=== PATIENT | female | born 1955 | race Caucasian/White ===

== ENCOUNTER 2019-12-08 15:54 | Inpatient (IN) | payer MEDICARE, SELFPAY ==
[2019-12-08 15:55] VITALS: BP 166/8; PULSE 119; RESP 24; TEMP 37.2; O2SAT 97; BMI 34.3
--- NOTE | 2019-12-08 16:35 | EKG12_ITS ---
Test Reason : N/V Blood Pressure : / mmHG Vent. Rate : 115 BPM Atrial Rate : 115 BPM P-R Int : 146 ms QRS Dur : 084 ms QT Int : 336 ms P-R-T Axes : 067 -69 050 degrees QTc Int : 464 ms Sinus tachycardia Left anterior fascicular block Inferior infarct , age undetermined Anterior infarct , age undetermined Abnormal ECG Confirmed by LEISA CHI ([id number]), editor sound AUBREY KING ([id number]) on 12/15/2019 1:47:30 PM Referred By: SHAYLEE Confirmed By:LEISA CHI
--- NOTE | 2019-12-08 16:39 | ED.DCSUM_ITS ---
History of Present Illness Chief Complaint: Nausea/Vomiting Informant: Patient - Abdominal Pain/Flank Pain Onset: Today Context: Gradual Onset Timing: Intermittent Quality: Aching Location: Diffuse - Nausea/Vomiting/Emesis GI Symptom: Nausea, Vomiting Onset: Yesterday Quality: Nonbilious. Negative for: Coffee ground, Hematemesis - Diarrhea/Melena/Hematochezia GI Symptom: Diarrhea, Hematochezia Onset: Today Stool Quality: Watery, JENNIFER per rectum. Negative for: Black, Maroon Narrative: Patient is a 64-year-old female with history of type 1 diabetes mellitus, generally well controlled, presenting with nausea vomiting and bright red blood per rectum. Patient states that yesterday she tried a probiotic for the first time but also ate [employer]. In the evening she developed nausea vomiting diarrhea. When it started she developed cold sweats. Around 330 her diarrhea progressed to bright red blood. She states when she goes to the toilet is just liquid that comes out and there is about half dollar size amount of blood seen on the bottom of the toilet. She denies any clots. She knows she did not take her nighttime insulin because she not been eating or drinking secondary to her GI symptoms. When she checked her blood sugar today it was 488. She did take 10 units of insulin and right before she came here her blood sugar was 385. She states her at last A1c was good. She not recall the exact number. She notes that she has mild diffuse abdominal discomfort. She states it is more like a nausea than pain. She states she is never had anything like this before. She have a colonoscopy when she was 21 when they were trying to diagnose her diabetes but has not had one since. Patient states she does take aspirin intermittently for headaches. She is not on any anticoagulation. She denies any other complaints at this time. Past Medical History - Allergies and Home Meds Allergies/Adverse Reactions: Allergies No Known Allergies Allergy (Verified 12/08/19 16:38) Past Medical History: - - Diabetes mellitus Surgical History: noncontributory, - - Sigmoidoscopy - Family History Maternal Family History: Reports: No pertinent history Paternal Family History: Reports: No pertinent history Review of Systems General: Reports: Chills, Malaise. Denies: Fever, Sweats Eyes: Denies: Visual changes - bilaterally, Diplopia ENT: Denies: Rhinorrhea, Sore throat Cardiovascular: Denies: Chest pain, Palpitations Respiratory: Denies: Dyspnea, Cough, Dyspnea on exertion Gastrointestinal: Reports: Nausea, Vomiting, Diarrhea, Hematochezia. Denies: Abdominal pain, Melena Genitourinary: Denies: Dysuria, Hematuria, Frequency Musculoskeletal: Denies: Back pain, Extremity Pain Skin: Denies: Rash, Wounds Neurological: Denies: Headache, Weakness, Numbness Physical Exam Vital Signs/Narrative: Vital Signs Temp Pulse Resp BP Pulse Ox 12/08/19 15:55 98.9 F 119 H 24 H 166/8 H 97 Inital Vital Signs reviewed: Yes General: Well nourished, Well developed, No Acute Distress Head: Normocephalic, Atraumatic Eyes: Perrl, EOMI ENT: No rhinorrhea, Dry mucous membranes Neck: Supple, Nontender Cardiovascular: Regular rhythm, No murmurs, Tachycardia Respiratory: No distress, CTA bilaterally, Chest nontender Abdomen: Soft, Nontender, Nondistended, Normal bowel sounds Rectal: Guaiac positive, Nontender, - - Bright red blood noted on rectal exam Back: Nontender, Normal Inspection Extremities: Nontender, No edema Skin: Normal color, No rash Neurological: Alert, Oriented x3, Cranial nerves II-XII grossly intact, Normal Strength, Normal Sensation Psychological: Normal affect, Normal Mood Diagnostic/Tx/Re-eval Chest X-Ray - ED: 1 View, Read by ED Physician, Read by Radiologist, No Acute Disease Laboratory Data 12/08/19 12/08/19 12/08/19 17:15 17:15 17:15 WBC 16.1 H RBC 4.88 Hgb 14.5 Hct 43.8 MCV 89.8 MCH 29.7 MCHC 33.1 RDW Std Deviation 45.1 H RDW Coeff of Nisha 13.8 Plt Count 290 MPV 9.2 Immature Gran % (Auto) 0.400 Neut % (Auto) 87.9 H Lymph % (Auto) 5.5 L [place]field % (Auto) 5.2 Eos % (Auto) 0.8 Baso % (Auto) 0.2 Absolute Neuts (auto) 14.1 H Absolute Lymphs (auto) 0.89 Nucleated RBC % 0 PT INR Sodium 137 Potassium 4.0 Chloride 101 Carbon Dioxide 27.0 Anion Gap 9 BUN 27 H Creatinine 1.21 H Estim Creat Clear Calc 41.09 Est GFR (MDRD) Af Amer 58 L Est GFR (MDRD) Non-Af 48 L BUN/Creatinine Ratio 22.3 H Glucose 328 H Lactic Acid Calcium 9.0 Total Bilirubin 0.80 AST 11 L ALT 23 Alkaline Phosphatase 158 H Troponin I < 0.015 Total Protein 7.4 Albumin 3.5 Globulin 3.9 Albumin/Globulin Ratio 0.9 Lipase 56 L Urine Color Urine Clarity Urine pH Ur Specific [place] Urine Protein Urine Glucose (UA) Urine Ketones Urine Occult Blood Urine Nitrite Urine Bilirubin Urine Urobilinogen Ur Leukocyte Esterase Urine RBC Urine WBC Ur Squamous Epith Cells Urine Bacteria Urine Mucus Acetone Level NEGATIVE Blood Type Antibody Screen Crossmatch 12/08/19 12/08/19 12/08/19 17:15 17:15 17:15 WBC RBC Hgb Hct MCV MCH MCHC RDW Std Deviation RDW Coeff of Nisha Plt Count MPV Immature Gran % (Auto) Neut % (Auto) Lymph % (Auto) [place] % (Auto) Eos % (Auto) Baso % (Auto) Absolute Neuts (auto) Absolute Lymphs (auto) Nucleated RBC % PT 12.7 INR 1.0 Sodium Potassium Chloride Carbon Dioxide Anion Gap BUN Creatinine Estim Creat Clear Calc Est GFR (MDRD) Af Amer Est GFR (MDRD) Non-Af BUN/Creatinine Ratio Glucose Lactic Acid 2.2 H* Calcium Total Bilirubin AST ALT Alkaline Phosphatase Troponin I Total Protein Albumin Globulin Albumin/Globulin Ratio Lipase Urine Color Yellow Urine Clarity Clear Urine pH 5.0 Ur Specific [place] 1.020 Urine Protein Negative Urine Glucose (UA) 1000 H Urine Ketones 150 H Urine Occult Blood 10 H Urine Nitrite Negative Urine Bilirubin Negative Urine Urobilinogen Normal Ur Leukocyte Esterase 25 H Urine RBC 0 SEEN Urine WBC 0-5 SEEN Ur Squamous Epith Cells 0-5 SEEN Urine Bacteria 0 SEEN Urine Mucus 0 SEEN Acetone Level Blood Type Antibody Screen Crossmatch 12/08/19 17:15 WBC RBC Hgb Hct MCV MCH MCHC RDW Std Deviation RDW Coeff of Nisha Plt Count MPV Immature Gran % (Auto) Neut % (Auto) Lymph % (Auto) [place] % (Auto) Eos % (Auto) Baso % (Auto) Absolute Neuts (auto) Absolute Lymphs (auto) Nucleated RBC % PT INR Sodium Potassium Chloride Carbon Dioxide Anion Gap BUN Creatinine Estim Creat Clear Calc Est GFR (MDRD) Af Amer Est GFR (MDRD) Non-Af BUN/Creatinine Ratio Glucose Lactic Acid Calcium Total Bilirubin AST ALT Alkaline Phosphatase Troponin I Total Protein Albumin Globulin Albumin/Globulin Ratio Lipase Urine Color Urine Clarity Urine pH Ur Specific [place] Urine Protein Urine Glucose (UA) Urine Ketones Urine Occult Blood Urine Nitrite Urine Bilirubin Urine Urobilinogen Ur Leukocyte Esterase Urine RBC Urine WBC Ur Squamous Epith Cells Urine Bacteria Urine Mucus Acetone Level Blood Type A POSITIVE Antibody Screen NEGATIVE Crossmatch See Detail - Rhythm Strip Rhythm Strip: Sinus Tach Rate: 115 Ectopy: None - EKG Initial EKG Interpretation: Sinus Tachycardia, - - Sinus tachycardia at a rate of 115 Left axis deviation KS interval 146 QRS 84 QTc 464 Left anterior fascicular block Normal ST segments - Medical Decision Making Patient is evaluated for nausea, vomiting and rectal bleeding. She does have bright red blood on her rectal exam. When she arrived patient is tachycardic. She is given IV fluids in the emergency room as I do suspect there is a component of dehydration. She is also given IV Zofran. Patient is improvement of her symptoms with these interventions. She does remain mildly tachycardic in the emergency room however. Her lactate is 2.2. She does have a leukocytosis however I suspect this is associated with her bleeding versus vomiting and I do not have any source of infection at this time. Her hemoglobin is 14.5 and stable. Her creatinine is mildly elevated at 1.21 however I do not have a baseline to compare to. Given patient's presenting tachycardia, lactic acidosis, GI bleed and comorbidities of type 1 diabetes mellitus I do think she would benefit from admission. Patient does not have an anion gap or ketones in her serum. She does not meet criteria for DKA. Patient is agreeable with this plan. Case is discussed with admitting physician. Patient remains hemodynamically stable for the general medical floor at time of disposition. ED Disposition - Plan for ED Patient: Disposition: Acute Care [facility] Diagnosis: GI bleed, Type 1 diabetes mellitus, Elevated serum creatinine
--- NOTE | 2019-12-08 16:41 | NURSING ---
NO OLD EKGS
[2019-12-08] MEDS: 0.9% Normal Saline 1,000 ML 1000 ML IV (17:25)
[2019-12-08] MEDS: Ondansetron 4 MG/2 ML Vial IV (17:25)
[2019-12-08 17:32] LABS: Bacteria 0 SEEN /hpf (None Seen); Mucous, Urine 0 SEEN /hpf (<or=2+); Red Blood Cells-Urine 0 SEEN /hpf (0-5)
[2019-12-08 17:42] LABS: Absolute Lymphocyte Count 0.89 X10^3/uL (0.83-4.51); Absolute Neutrophil Count 14.1 X10^3/uL (2.0-7.7); Basophil# 0.03 X10^3/uL; Basophil% 0.2 % (0-1); Eosinophil# 0.13 X10^3/uL; Eosinophils% 0.8 % (0-5); Hematocrit 43.8 % (37-47); Hemoglobin 14.5 g/dL (12.0-15.0); Lymphocyte # 0.89 X10^3/ul (4.0); Lymphocyte % 5.5 % (19-41); Mean Corp Hgb Conc 33.1 g/dL (32-36); Mean Corpuscular Hgb 29.7 pg (27.0-32.0); Mean Corpuscular Volume 89.8 fL (81-99); Mean Platelet Vol. 9.2 fl (6.2-12.0); Monocyte# 0.83 X10^3/uL; Monocyte% 5.2 % (0-10); NRBC Flagged by Analyzer 0 % (0-5); Neutrophil # 14.14 X10^3/uL (2.7-7.7); Neutrophil % 87.9 % (47-70); Platelet Count 290 K/mm3 (150-450); RBC Distribution Width CV 13.8 % (11.6-14.6); RBC Distribution Width SD 45.1 fl (35.1-43.9); Red Blood Count 4.88 M/mm3 (4.2-5.4); White Blood Count 16.1 K/mm3 (4.4-11.0)
[2019-12-08 17:55] LABS: Color, Urine Yellow (Yellow); Glucose, Dipstick 1000 mg/dl (Normal); Leukocyte Esterase-Dipstick 25 /ul (Negative); Nitrite-Dipstick Negative (Negative); Occult Blood-Urine 10 /ul (Negative); Protein-Dipstick Negative (Negative); Urine Bilirubin Dipstick Negative (Negative); Urine Clarity Clear (Clear); Urine Urobilinogen Normal (Normal)
[2019-12-08 18:00] LABS: ALB/GLOB Ratio 0.9 RATIO (0.9-2.4); AST(SGOT) 11 U/L (15-37); Alanine Aminotransfer ALT/SGPT 23 U/L (13-56); Albumin, Serum 3.5 g/dL (3.2-5.0); Alkaline Phosphatase 158 U/L (45-117); Anion Gap 9 (5-15); BUN 27 mg/dL (7-18); BUN/Creat Ratio 22.3 RATIO (10-20); Chloride 101 mmol/L (98-107); Creatinine, Serum 1.21 mg/dL (0.55-1.02); EST Glomerular Filtration Rate 48 mL/min (>60); Est Glom Filt Rate - Afr Amer 58 mL/min (>60); Estimated Creatinine Clearance 41.09 ml/min; Globulin 3.9 g/dL (2.2-4.2); Glucose 328 mg/dL (74-106); Lipase 56 U/L (73-393); Protein, Total 7.4 g/dL (6.4-8.2); Sodium Level 137 mmol/L (136-145)
[2019-12-08 18:04] LABS: Ketone-Dipstick 150 mg/dl (Negative)
[2019-12-08 18:05] LABS: Lactic Acid 2.2 mmol/L (0.4-1.9)
[2019-12-08 18:15] LABS: Squamous Epithelial Cells - UA 0-5 SEEN /hpf (5-10); White Blood Cells 0-5 SEEN /hpf (0-5)
--- NOTE | 2019-12-08 18:24 | PCM.HP.STD ---
Problem List (1) GI bleed Status: Acute (2) Insomnia Status: Chronic (3) Depression Status: Chronic (4) Type 1 diabetes mellitus Status: Chronic (5) Hypertension Status: Chronic History of Present Illness Date of Admission: 12/08/19 Chief Complaint: Bleeding per rectum. The patient is a 64 year old F with past medical history as mentioned above presented to the emergency room because of bleeding per rectum. Patient stated that around 3 AM this morning, she had bowel movement which was bloody, bright red blood, large amount and she continued to have intermittent bowel movements with bright red blood, almost 20-25 times since early this morning, associated with mild nausea without vomiting. She complained also of abdominal pain, described as crampy abdominal pain intermittent without aggravating or relieving factors. She denied dizziness or lightheadedness. She denied chest pain or shortness of breath. In the emergency department, her blood pressure was slight elevated, she was tachycardic, other vital signs were stable. Routine blood work was remarkable for leukocytosis, BUN of 27 and creatinine of 1.21, blood glucose of 328 without evidence of DKA, lactic acid was 2.2. LFT and lipase was unremarkable. EKG revealed sinus tachycardia, no acute hemic changes. Troponin is negative. Urinalysis showed no evidence of acute infection. She is being admitted for GI bleed, renal insufficiency and lactic acidosis. Past Medical History Past Medical History (Chronic Problems): Chronic Problems Insomnia (Chronic) Depression (Chronic) Type 1 diabetes mellitus (Chronic) Hypertension (Chronic) Allergies No Known Allergies Allergy (Verified 12/08/19 16:38) Surgical History: - - section. 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 Lives: Spouse/ Significant Other Smoking Status: Never smoker Alcohol: Rare Drugs: None - *Family History Maternal History Items: No pertinent history Paternal History Items: No pertinent history Review of Systems Constitutional: Denies: Anorexia, Chills, Fever, Weakness Eyes: Denies: Blurred vision, Double vision, Drainage, Redness HEENT: Denies: Difficulty Hearing, Ear Pain, Eye Pain, Nasal Congestion, Sore Throat Cardiovascular: Denies: Chest Pain, Chest Pressure, Heaviness, Light Headedness, Palpitations, Syncope Respiratory: Denies: Cough, Hemoptysis, Pleuritic Pain, Shortness of Breath, Sputum production, Wheezing Gastrointestinal: Reports: Abdominal Pain, Hematochezia, Nausea. Denies: Constipation, Diarrhea Genitourinary: Denies: Dysuria, Frequency, Hematuria Musculoskeletal: Denies: Arm Pain, Back Pain, Foot Pain Skin: Denies: Dryness, Rash Neurological: Denies: Balance problems, Double vision, Change in Speech, Slurred speech, Confusion, Headaches, Incoordination Psychiatric: Reports: Depression. Denies: Anxiety Endocrine: Denies: Change in Body Habitus, Polydipsia, Polyuria VTE Information - Inpt Only VTE Present on Admission: No VTE Mechan Device Prophylaxis: SCD's VTE Pharm Prophylaxis ordered?: No Patient Problems: Active and Suspected Problems GI bleed (Acute) - Physical Exam Vitals/I&O's: Vital Signs Temp Pulse Resp BP Pulse Ox 98.9 F 119 H 24 H 166/8 H 97 12/08/19 15:55 12/08/19 15:55 12/08/19 15:55 12/08/19 15:55 12/08/19 15:55 Oxygen Delivery Method Room Air Weight: 199 lb 15.348 oz Body Mass Index (BMI) 34.3 General: Alert, Oriented x3, Cooperative, No apparent distress HEENT: Atraumatic, PERRLA, EOMI, Normocephalic Oral: Moist Mucosa, No Gingival or Mucosal Lesions/ Ulcerations Neck: Supple, No JVD, Negative Carotid Bruits, Trachea Midline, Thyroid Normal Size and Texture Lungs: Clear to auscultation, Normal air movement, No rhonchi, No wheeze, No rales Cardiovascular: Regular rate, Regular Rhythm, Normal S1, Normal S2, No murmurs, PMI Normal, Tachycardic Abdomen: Bowel Sounds Present, Soft, Non Tender, Non-Distended, No Hepato-splenomegaly Extremities: No clubbing, No cyanosis, No edema Skin: No rashes, No breakdown Lymphatic: No Cervical, Supraclavicular, or Inguinal Adenopathy Neurological: Cranial nerves II-XII grossly intact, Motor Exam 5/5 strength throughout Psych/Mental Status: Normal Affect, Appropriate, Alert and oriented to time, place, person, mood and affect Microbiology Past 72 Hours 12/08/19 17:15 Stool Stool Occult Blood (REANNA) - Final Occult Blood Positive Laboratory Results 12/08/19 17:15: WBC 16.1 H, RBC 4.88, Hgb 14.5, Hct 43.8, MCV 89.8, MCH 29.7, MCHC 33.1, RDW Std Deviation 45.1 H, RDW Coeff of Nisha 13.8, Plt Count 290, MPV 9.2, Immature Gran % (Auto) 0.400, Neut % (Auto) 87.9 H, Lymph % (Auto) 5.5 L, [place] % (Auto) 5.2, Eos % (Auto) 0.8, Baso % (Auto) 0.2, Absolute Neuts (auto) 14.1 H, Absolute Lymphs (auto) 0.89, Nucleated RBC % 0 12/08/19 17:15: Sodium 137, Potassium 4.0, Chloride 101, Carbon Dioxide 27.0, Anion Gap 9, BUN 27 H, Creatinine 1.21 H, Estim Creat Clear Calc 41.09, Est GFR (MDRD) Af Amer 58 L, Est GFR (MDRD) Non-Af 48 L, BUN/Creatinine Ratio 22.3 H, Glucose 328 H, Calcium 9.0, Total Bilirubin 0.80, AST 11 L, ALT 23, Alkaline Phosphatase 158 H, Troponin I < 0.015, Total Protein 7.4, Albumin 3.5, Globulin 3.9, Albumin/Globulin Ratio 0.9, Lipase 56 L 12/08/19 17:15: Acetone Level NEGATIVE 12/08/19 17:15: Lactic Acid 2.2 H* 12/08/19 17:15: Urine Color Yellow, Urine Clarity Clear, Urine pH 5.0, Ur Specific [place] 1.020, Urine Protein Negative, Urine Glucose (UA) 1000 H, Urine Ketones 150 H, Urine Occult Blood 10 H, Urine Nitrite Negative, Urine Bilirubin Negative, Urine Urobilinogen Normal, Ur Leukocyte Esterase 25 H, Urine RBC 0 SEEN, Urine WBC 0-5 SEEN, Ur Squamous Epith Cells 0-5 SEEN, Urine Bacteria 0 SEEN, Urine Mucus 0 SEEN Assessment/Plan All Active Problems GI bleed (Acute) This is a 64 years old female patient presented to the emergency room because of bleeding per rectum, found to have slightly with BUN and creatinine as well as lactic acid and she is being admitted for evaluation and treatment. #1 GI bleed: Could be lower GI bleed. No history or clinical findings suggestive of upper GI bleed. Patient's blood pressure is slightly repeated, she is tachycardic. Hemoglobin and hematocrit are stable. Plan: Admit to PCU, cardiac monitoring, IV fluids, type, crossmatch and hold units of packed RBCs, hemoglobin and hematocrit every 8 hours, transfuse if hemoglobin is less than 8 g/dL, IV Protonix twice daily, repeat CBC and BMP tomorrow morning, general surgery consult. #2 renal sufficiency: Probably acute secondary to blood loss. BUN is 27, creatinine is 1.1, unknown baseline creatinine. Plan: IV fluids, input output chart, repeat BMP tomorrow morning. #3 lactic acidosis: Probably due to acute blood loss and tachycardia. No evidence of infection or symptoms suggestive of infection. Plan: IV fluids, blood transfusion if needed, repeat lactic acid in 3 hours. No indication for to start IV antibiotics. #4 type 1 diabetes mellitus: Keep patient on clear liquids, IV fluids, Accu-Cheks every 6 hours, insulin sliding scale, continue home doses of insulin when home medication list updated. #5 hypertension: Blood pressure slight elevated, continue home medication when home medication list updated, IV hydralazine PRN. #6 depression/insomnia: Continue Cymbalta and trazodone. #7 DVT prophylaxis: SCDs. This note was generated with [employer] dictation software. It may contain incorrect words, spelling, and punctuation that were not noted in checking the note before signing. Inpatient E&M: 23665 Init Hosp L3
[2019-12-08 18:45] VITALS: BP 124/81; PULSE 101; RESP 17; TEMP 36.8; O2SAT 99
[2019-12-08 19:57] VITALS: PULSE 86
[2019-12-08 20:03] VITALS: BP 147/74; PULSE 87; RESP 16; TEMP 36.7; O2SAT 98
[2019-12-08 20:06] VITALS: BP 132/79
[2019-12-08 20:11] VITALS: BMI 34.2
[2019-12-08 20:20] VITALS: BMI 34.2
[2019-12-08 20:49] LABS: Prothrombin Time (Protime)PT. 12.7 SECONDS (11.7-14.9)
[2019-12-08 21:12] LABS: Hematocrit 40.5 % (37-47); Hemoglobin 13.4 g/dL (12.0-15.0)
[2019-12-08 21:30] LABS: Reflex Lactate? Y
[2019-12-08] MEDS: 0.9% Saline Lock 10 ML Syringe IV (21:32)
[2019-12-08] MEDS: Zolpidem Tartrate 5 MG Tablet PO (21:32)
[2019-12-08] MEDS: 0.9% Normal Saline 1,000 ML 100 ML IV (21:33)
[2019-12-08 21:36] VITALS: O2SAT 96
[2019-12-08 22:05] LABS: Bedside Glucose 219 mg/dL (70-110)
[2019-12-08 22:09] LABS: Lactic Acid 1.8 mmol/L (0.4-1.9)
[2019-12-08] MEDS: Acetaminophen 325 MG Tablet 650 MG PO (22:11)
[2019-12-09] VITALS (11 sets, daily range): BP systolic 116–152; BP diastolic 58–92; PULSE 63–123; RESP 12–18; TEMP 36.4–37.5; O2SAT 93–98
[2019-12-09] MEDS: Insulin Lispro 100 UNIT/ML INSULN.PEN SC ×3 (05:07→17:21)
[2019-12-09 05:21] LABS: Bedside Glucose 201 mg/dL (70-110)
[2019-12-09] MEDS: Acetaminophen 325 MG Tablet 650 MG PO (06:38)
[2019-12-09 06:40] LABS: Bedside Glucose 157 mg/dL (70-110)
[2019-12-09 07:04] LABS: Absolute Lymphocyte Count 1.62 X10^3/uL (0.83-4.51); Absolute Neutrophil Count 9.5 X10^3/uL (2.0-7.7); Basophil# 0.04 X10^3/uL; Basophil% 0.3 % (0-1); Eosinophil# 0.14 X10^3/uL; Eosinophils% 1.1 % (0-5); Hematocrit 42.2 % (37-47); Hemoglobin 13.8 g/dL (12.0-15.0); Lymphocyte # 1.62 X10^3/ul (4.0); Lymphocyte % 13.3 % (19-41); Mean Corp Hgb Conc 32.7 g/dL (32-36); Mean Corpuscular Hgb 29.7 pg (27.0-32.0); Mean Corpuscular Volume 90.9 fL (81-99); Mean Platelet Vol. 9.5 fl (6.2-12.0); Monocyte# 0.85 X10^3/uL; NRBC Flagged by Analyzer 0 % (0-5); Platelet Count 248 K/mm3 (150-450); RBC Distribution Width CV 14.5 % (11.6-14.6); RBC Distribution Width SD 47.2 fl (35.1-43.9); Red Blood Count 4.64 M/mm3 (4.2-5.4); White Blood Count 12.2 K/mm3 (4.4-11.0)
[2019-12-09 07:27] LABS: Anion Gap 6 (5-15); BUN 21 mg/dL (7-18); BUN/Creat Ratio 21.4 RATIO (10-20); Calcium,Total 8.4 mg/dL (8.5-10.1); Chloride 104 mmol/L (98-107); Creatinine, Serum 0.98 mg/dL (0.55-1.02); EST Glomerular Filtration Rate 61 mL/min (>60); Est Glom Filt Rate - Afr Amer 73 mL/min (>60); Estimated Creatinine Clearance 50.74 ml/min; Glucose 230 mg/dL (74-106); Potassium 3.7 mmol/L (3.5-5.1); Sodium Level 136 mmol/L (136-145)
--- NOTE | 2019-12-09 07:35 | CT_ITS ---
STUDY: CT ABDOMEN AND PELVIS WITH CONTRAST REASON FOR EXAM: Female, 64 years old. ABD PAIN, GI BLEED, BLOODY STOOL RADIATION DOSAGE (If Supplied By Facility): CTDIvol = ( 15.24 ) mGy, DLP = ( 1102.27 ) mGycm TECHNIQUE: Transaxial images were obtained from the dome of the diaphragm to the symphysis pubis with oral contrast. Oral and amp; IV Gastrografin and amp; 100mL Isovue-300 was administered. Sagittal and coronal images were reconstructed. Individualized dose optimization techniques were used for this CT. COMPARISON: None. FINDINGS: Minimal right basilar atelectasis. The visualized portions of the heart are within normal limits. There is decreased attenuation of the liver consistent with steatosis. Normal gallbladder and extrahepatic biliary system. Normal spleen. Normal pancreas. Normal bilateral adrenal glands. Normal right kidney. Normal left kidney. Normal visualized stomach. Normal small intestine. There is diffuse circumferential thickening of the left hemicolon down to the rectum. Increased markings are seen in the surrounding mesenteric fat. This is incompletely diffuse colitis. This extends into the transverse colon. The appendix is visualized and appears normal. Normal abdominal aorta. Normal inferior vena cava. There is borderline retroperitoneal lymphadenopathy with enlarged nodes no greater than 10mm in the short axis diameter. Normal urinary bladder. Small benign-appearing bilateral inguinal lymph nodes. Normal abdominal wall. Normal osseous structures. CT/Abdomen/Pelvis WITH Contrast IMPRESSION: Findings in comparison with the colitis of the transverse colon and left hemicolon down to the rectum. Electronically Signed: Noah Washburn, at 10:49 EDT , Service support ,
[2019-12-09] MEDS: 0.9% Normal Saline 1,000 ML 100 ML IV ×2 (08:21→22:01)
--- NOTE | 2019-12-09 09:18 | PCM.PROGNOTE ---
Patient Problems: Active and Suspected Problems GI bleed (Acute) Subjective: Chief complaint: Follow-up of after admission for GI bleed. Patient seen and examined. No acute events overnight. She still complaining of bright red bleeding per rectum, complained of abdominal pain described as abdominal cramps, gas pain. Denied nausea or vomiting. Complaining of weakness. Denied dizziness, lightheadedness, chest pain or shortness of breath. Her vital signs are stable. - Physical Exam Vitals/I&O's: Vital Signs Temp Pulse Resp BP Pulse Ox 97.5 F L 90 16 142/86 H 98 12/09/19 05:11 12/09/19 06:47 12/09/19 05:11 12/09/19 05:11 12/09/19 05:11 Oxygen Delivery Method Room Air Weight: 199 lb 4.766 oz Body Mass Index (BMI) 34.2 Intake and Output for Last 24 Hours 12/07/19 12/08/19 12/09/19 23:59 23:59 23:59 Intake Total 1342 / 1342 1060 / 1060 Balance 1342 / 1342 1060 / 1060 General: Alert, Oriented x3, Cooperative, No apparent distress HEENT: Atraumatic, PERRLA, EOMI, Normocephalic Oral: Moist Mucosa, No Gingival or Mucosal Lesions/ Ulcerations Neck: Supple, No JVD, Negative Carotid Bruits, Trachea Midline, Thyroid Normal Size and Texture Lungs: Clear to auscultation, Normal air movement, No rhonchi, No wheeze, No rales Cardiovascular: Regular rate, Regular Rhythm, Normal S1, Normal S2 Abdomen: Bowel Sounds Present, Soft, Non Tender, Non-Distended, No Hepato-splenomegaly Extremities: No clubbing, No cyanosis, No edema Skin: No rashes, No breakdown Lymphatic: No Cervical, Supraclavicular, or Inguinal Adenopathy Neurological: Cranial nerves II-XII grossly intact, Motor Exam 5/5 strength throughout Psych/Mental Status: Normal Affect, Appropriate, Alert and oriented to time, place, person, mood and affect Microbiology Past 72 Hours 12/08/19 17:15 Stool Stool Occult Blood (REANNA) - Final Occult Blood Positive Laboratory Results 12/08/19 17:15: WBC 16.1 H, RBC 4.88, Hgb 14.5, Hct 43.8, MCV 89.8, MCH 29.7, MCHC 33.1, RDW Std Deviation 45.1 H, RDW Coeff of Nisha 13.8, Plt Count 290, MPV 9.2, Immature Gran % (Auto) 0.400, Neut % (Auto) 87.9 H, Lymph % (Auto) 5.5 L, [place] % (Auto) 5.2, Eos % (Auto) 0.8, Baso % (Auto) 0.2, Absolute Neuts (auto) 14.1 H, Absolute Lymphs (auto) 0.89, Nucleated RBC % 0 12/08/19 17:15: Sodium 137, Potassium 4.0, Chloride 101, Carbon Dioxide 27.0, Anion Gap 9, BUN 27 H, Creatinine 1.21 H, Estim Creat Clear Calc 41.09, Est GFR (MDRD) Af Amer 58 L, Est GFR (MDRD) Non-Af 48 L, BUN/Creatinine Ratio 22.3 H, Glucose 328 H, Calcium 9.0, Total Bilirubin 0.80, AST 11 L, ALT 23, Alkaline Phosphatase 158 H, Troponin I < 0.015, Total Protein 7.4, Albumin 3.5, Globulin 3.9, Albumin/Globulin Ratio 0.9, Lipase 56 L 12/08/19 17:15: Acetone Level NEGATIVE 12/08/19 17:15: Lactic Acid 2.2 H* 12/08/19 17:15: Urine Color Yellow, Urine Clarity Clear, Urine pH 5.0, Ur Specific [place] 1.020, Urine Protein Negative, Urine Glucose (UA) 1000 H, Urine Ketones 150 H, Urine Occult Blood 10 H, Urine Nitrite Negative, Urine Bilirubin Negative, Urine Urobilinogen Normal, Ur Leukocyte Esterase 25 H, Urine RBC 0 SEEN, Urine WBC 0-5 SEEN, Ur Squamous Epith Cells 0-5 SEEN, Urine Bacteria 0 SEEN, Urine Mucus 0 SEEN 12/08/19 17:15: PT 12.7, INR 1.0 12/08/19 17:15: Blood Type A POSITIVE, Antibody Screen NEGATIVE, Crossmatch See Detail 12/08/19 20:09: POC Glucose 219 H 12/08/19 20:38: Hgb 13.4, Hct 40.5 12/08/19 20:38: Lactic Acid 1.8 12/09/19 00:52: POC Glucose 157 H 12/09/19 05:03: POC Glucose 201 H 12/09/19 06:03: WBC 12.2 H, RBC 4.64, Hgb 13.8, Hct 42.2, MCV 90.9, MCH 29.7, MCHC 32.7, RDW Std Deviation 47.2 H, RDW Coeff of Nisha 14.5, Plt Count 248, MPV 9.5, Immature Gran % (Auto) 0.300, Neut % (Auto) 78.0 H, Lymph % (Auto) 13.3 L, [place] % (Auto) 7.0, Eos % (Auto) 1.1, Baso % (Auto) 0.3, Absolute Neuts (auto) 9.5 H, Absolute Lymphs (auto) 1.62, Nucleated RBC % 0 12/09/19 06:03: Sodium 136, Potassium 3.7, Chloride 104, Carbon Dioxide 26.0, Anion Gap 6, BUN 21 H, Creatinine 0.98, Estim Creat Clear Calc 50.74, Est GFR (MDRD) Af Amer 73, Est GFR (MDRD) Non-Af 61, BUN/Creatinine Ratio 21.4 H, Glucose 230 H, Calcium 8.4 L Current Medications Acetaminophen (Tylenol) 650 mg PO Q6H PRN PRN PRN Reason: Pain Score 1-10/Temp > 100.7 F Last Admin: 12/09/19 06:38 Dose: 650 mg Documented by: Dextrose (D50w Syringe) 0 gm IV X1 PRN; Protocol PRN Reason: Hypoglycemia Glucagon () 1 mg IM .X1 PRN PRN Reason: Hypoglycemia Hydralazine HCl (Apresoline Iv) 10 mg IV Q8H PRN PRN PRN Reason: for SBP>160 Sodium Chloride () 1,000 mls @ 100 mls/hr IV .Q10H MAXI Last Admin: 12/09/19 08:21 Dose: 100 mls/hr Documented by: Pantoprazole Sodium 40 mg/ (Sodium Chloride) 110 mls @ 330 mls/hr IV Q12 MAXI Last Admin: 12/09/19 08:21 Dose: 330 mls/hr Documented by: Insulin Human Lispro (Humalog Kwikpen (Bkc)) 0 unit SC Q6 MAXI; Protocol Last Admin: 12/09/19 05:07 Dose: 2 u Documented by: Nutritional Formula (Lactose Free) (Ensure Clear) 120 ml PO 4X/DAY MAXI Last Admin: 12/09/19 08:22 Dose: Not Given Documented by: Ondansetron HCl (Zofran) 4 mg IV Q8H PRN PRN PRN Reason: NAUSEA/VOMITING Sodium Chloride () 10 - 40 ml IV UD PRN PRN Reason: SALINE FLUSH Last Admin: 12/08/19 21:32 Dose: 10 ml Documented by: Zolpidem Tartrate (Ambien (Generic)) 5 mg PO QHS PRN PRN PRN Reason: INSOMNIA Last Admin: 12/08/19 21:32 Dose: 5 mg Documented by: Medical Necessity - Tobacco Use Smoking Status: Never smoker Assessment/Plan All Active Problems GI bleed (Acute) This is a 64 years old female patient presented to the emergency room because of bleeding per rectum, found to have slightly with BUN and creatinine as well as lactic acid and she is being admitted for evaluation and treatment. #1 GI bleed: Patient still having active bleeding. Hemoglobin hematocrit stable. She is on clear liquids, IV fluids, IV Protonix. General surgery consulted, recommended CT scan abdomen and pelvis with IV and p.o. contrast. Repeat routine blood work from today reviewed, kidney function is back to normal, WBC is trending down. Pro time and INR are normal. Platelet count is normal. Plan for CT scan abdomen pelvis as above and if it is unremarkable, plan for colonoscopy tomorrow morning. #2 renal sufficiency: Probably acute secondary to blood loss. She has been on IV fluids, kidney function is back to normal, creatinine is down to 0.98, normal. #3 lactic acidosis: Probably due to acute blood loss and tachycardia. Lactic acid is back to normal with IV fluids. No evidence of infection or symptoms suggestive of infection. #4 type 1 diabetes mellitus: She is on clear liquids, blood sugar has been stable. She is only on sliding scale. At home, she has been on Levemir insulin as well as insulin aspart 3 times daily. #5 hypertension: Blood pressure under better control, she is on IV hydralazine PRN. Lisinopril held. #6 depression/insomnia: Holding trazodone and Cymbalta. #7 DVT prophylaxis: SCDs. This note was generated with Dragon dictation software. It may contain incorrect words, spelling, and punctuation that were not noted in checking the note before signing. Inpatient E&M: 98941 Subs Hosp L2
--- NOTE | 2019-12-09 10:26 | PCM.CONS.GEN ---
Problem List (1) GI bleed Status: Acute Qualifiers: GI bleed type/associated pathology: unspecified gastrointestinal hemorrhage type Qualified Code(s): K92.2 - Gastrointestinal hemorrhage, unspecified Reason for Consult Date of Consultation: 12/09/19 Reason for Consultation: GI bleeding History of Present Illness: The patient is a 64 year old F who presents to the hospital with blood per rectum. The patient reports that she ate some [employer] on Sunday. She reports Sunday evening she started having nausea and vomiting and diarrhea. The following day the diarrhea started to turn blood-tinged. She is now currently not passing any diarrhea only small amounts of blood which is bright red. She is never had a GI bleed in the past. She reports no nausea or vomiting currently today. She is saying that she is having gas pain in her lower abdomen. Past Medical History Past Medical History (Chronic Problems): Chronic Problems Insomnia (Chronic) Depression (Chronic) Type 1 diabetes mellitus (Chronic) Hypertension (Chronic) Allergies No Known Allergies Allergy (Verified 12/08/19 16:38) Home Medications: Ambulatory Orders Medication Instructions Recorded Aspirin/Acetaminophen/Caffeine 1 tab PO DAILY 12/08/19 [Headache Relief Caplet] Duloxetine Hcl [Cymbalta] 60 mg PO DAILY 12/08/19 Insulin Aspart [Novolog Vial] 10 - 15 units SQ TIDCM 12/08/19 Insulin Detemir [Levemir] 15 units SQ QHS 12/08/19 Insulin Detemir [Levemir] 45 units SQ DAILY@1200 12/08/19 Lisinopril [Zestril] 10 mg PO DAILY 12/08/19 Trazodone HCl 200 mg PO QHS 12/08/19 Surgical History: - - section. Psychiatric History: Depression OCCUPATIONAL THERAPIST History: No pertinent OCCUPATIONAL THERAPIST history Lives: Spouse/ Significant Other Smoking Status: Never smoker Alcohol: Rare Drugs: None - *Family History Maternal History Items: No pertinent history Paternal History Items: No pertinent history Review of Systems Constitutional: Denies: Anorexia, Fever Eyes: Denies: Blurred vision HEENT: Denies: Difficulty Swallowing Cardiovascular: Denies: Chest Pain Respiratory: Denies: Cough, Shortness of Breath Gastrointestinal: Reports: Abdominal Pain, Diarrhea, Hematochezia, Nausea, Vomiting. Denies: Dyspepsia, Hematemesis, Melena Neurological: Denies: Balance problems Psychiatric: Denies: Anxiety Hematologic/ Lymphatic: Denies: Anemia Patient Problems: Active and Suspected Problems GI bleed (Acute) - Physical Exam Vitals/I&O's: Vital Signs Temp Pulse Resp BP Pulse Ox 97.5 F L 90 16 142/86 H 98 12/09/19 05:11 12/09/19 06:47 12/09/19 05:11 12/09/19 05:11 12/09/19 05:11 Oxygen Delivery Method Room Air Weight: 199 lb 4.766 oz Body Mass Index (BMI) 34.2 Intake and Output for Last 24 Hours 12/07/19 12/08/19 12/09/19 23:59 23:59 23:59 Intake Total 1342 / 1342 1170 / 1170 Balance 1342 / 1342 1170 / 1170 General: Alert, Oriented x3 Neck: No JVD Lungs: Normal air movement Cardiovascular: Regular rate, Regular Rhythm Abdomen: Soft, Non-Distended, Tender - Mild tenderness in the lower abdomen. No guarding or rebound Microbiology Past 72 Hours 12/08/19 17:15 Stool Stool Occult Blood (REANNA) - Final Occult Blood Positive Laboratory Results 12/08/19 17:15: WBC 16.1 H, RBC 4.88, Hgb 14.5, Hct 43.8, MCV 89.8, MCH 29.7, MCHC 33.1, RDW Std Deviation 45.1 H, RDW Coeff of Nisha 13.8, Plt Count 290, MPV 9.2, Immature Gran % (Auto) 0.400, Neut % (Auto) 87.9 H, Lymph % (Auto) 5.5 L, [place] % (Auto) 5.2, Eos % (Auto) 0.8, Baso % (Auto) 0.2, Absolute Neuts (auto) 14.1 H, Absolute Lymphs (auto) 0.89, Nucleated RBC % 0 12/08/19 17:15: Sodium 137, Potassium 4.0, Chloride 101, Carbon Dioxide 27.0, Anion Gap 9, BUN 27 H, Creatinine 1.21 H, Estim Creat Clear Calc 41.09, Est GFR (MDRD) Af Amer 58 L, Est GFR (MDRD) Non-Af 48 L, BUN/Creatinine Ratio 22.3 H, Glucose 328 H, Calcium 9.0, Total Bilirubin 0.80, AST 11 L, ALT 23, Alkaline Phosphatase 158 H, Troponin I < 0.015, Total Protein 7.4, Albumin 3.5, Globulin 3.9, Albumin/Globulin Ratio 0.9, Lipase 56 L 12/08/19 17:15: Acetone Level NEGATIVE 12/08/19 17:15: Lactic Acid 2.2 H* 12/08/19 17:15: Urine Color Yellow, Urine Clarity Clear, Urine pH 5.0, Ur Specific [place] 1.020, Urine Protein Negative, Urine Glucose (UA) 1000 H, Urine Ketones 150 H, Urine Occult Blood 10 H, Urine Nitrite Negative, Urine Bilirubin Negative, Urine Urobilinogen Normal, Ur Leukocyte Esterase 25 H, Urine RBC 0 SEEN, Urine WBC 0-5 SEEN, Ur Squamous Epith Cells 0-5 SEEN, Urine Bacteria 0 SEEN, Urine Mucus 0 SEEN 12/08/19 17:15: PT 12.7, INR 1.0 12/08/19 17:15: Blood Type A POSITIVE, Antibody Screen NEGATIVE, Crossmatch See Detail 12/08/19 20:09: POC Glucose 219 H 12/08/19 20:38: Hgb 13.4, Hct 40.5 12/08/19 20:38: Lactic Acid 1.8 12/09/19 00:52: POC Glucose 157 H 12/09/19 05:03: POC Glucose 201 H 12/09/19 06:03: WBC 12.2 H, RBC 4.64, Hgb 13.8, Hct 42.2, MCV 90.9, MCH 29.7, MCHC 32.7, RDW Std Deviation 47.2 H, RDW Coeff of Nisha 14.5, Plt Count 248, MPV 9.5, Immature Gran % (Auto) 0.300, Neut % (Auto) 78.0 H, Lymph % (Auto) 13.3 L, [place] % (Auto) 7.0, Eos % (Auto) 1.1, Baso % (Auto) 0.3, Absolute Neuts (auto) 9.5 H, Absolute Lymphs (auto) 1.62, Nucleated RBC % 0 12/09/19 06:03: Sodium 136, Potassium 3.7, Chloride 104, Carbon Dioxide 26.0, Anion Gap 6, BUN 21 H, Creatinine 0.98, Estim Creat Clear Calc 50.74, Est GFR (MDRD) Af Amer 73, Est GFR (MDRD) Non-Af 61, BUN/Creatinine Ratio 21.4 H, Glucose 230 H, Calcium 8.4 L Current Medications Acetaminophen (Tylenol) 650 mg PO Q6H PRN PRN PRN Reason: Pain Score 1-10/Temp > 100.7 F Last Admin: 12/09/19 06:38 Dose: 650 mg Documented by: Dextrose (D50w Syringe) 0 gm IV X1 PRN; Protocol PRN Reason: Hypoglycemia Glucagon () 1 mg IM .X1 PRN PRN Reason: Hypoglycemia Hydralazine HCl (Apresoline Iv) 10 mg IV Q8H PRN PRN PRN Reason: for SBP>160 Sodium Chloride () 1,000 mls @ 100 mls/hr IV .Q10H MAXI Last Admin: 12/09/19 08:21 Dose: 100 mls/hr Documented by: Pantoprazole Sodium 40 mg/ (Sodium Chloride) 110 mls @ 330 mls/hr IV Q12 MAXI Last Infusion: 12/09/19 09:37 Dose: Infused Documented by: Insulin Human Lispro (Humalog Kwikpen (Bkc)) 0 unit SC Q6 MAXI; Protocol Last Admin: 12/09/19 05:07 Dose: 2 u Documented by: Nutritional Formula (Lactose Free) (Ensure Clear) 120 ml PO 4X/DAY MAXI Last Admin: 12/09/19 08:22 Dose: Not Given Documented by: Ondansetron HCl (Zofran) 4 mg IV Q8H PRN PRN PRN Reason: NAUSEA/VOMITING Sodium Chloride () 10 - 40 ml IV UD PRN PRN Reason: SALINE FLUSH Last Admin: 12/08/19 21:32 Dose: 10 ml Documented by: Zolpidem Tartrate (Ambien (Generic)) 5 mg PO QHS PRN PRN PRN Reason: INSOMNIA Last Admin: 12/08/19 21:32 Dose: 5 mg Documented by: Assessment/Plan All Active Problems GI bleed (Acute) 64-year-old female with GI bleed 1. Patient reports that she did have nausea vomiting and diarrhea before the bleeding started. I am concerned for colitis in her case. I would like to order a CT scan with p.o. and IV contrast today. I will order a clear liquid diet as well. If the CT scan is normal I will give her a bowel prep this afternoon and perform a colonoscopy tomorrow. If it is colitis I would recommend continuing only clear liquid diet and giving her bowel rest until her pain and bleeding have resolved. Currently hemoglobin is stable. Continue to monitor. Jaron Herrera MD Pager: [facility] [address] [place] [address], [address] [place] [address] Office:
[2019-12-09] MEDS: 0.9% Saline Lock 10 ML Syringe IV ×2 (12:26→13:56)
[2019-12-09] MEDS: Ciprofloxacin 400 MG/200 ML BAG 200 MG IV ×2 (12:26→22:37)
[2019-12-09 12:35] LABS: Bedside Glucose 331 mg/dL (70-110)
[2019-12-09] MEDS: Morphine 2 MG/ML Syringe IV ×2 (13:56→18:46)
[2019-12-09] MEDS: Ondansetron 4 MG/2 ML Vial IV (13:56)
[2019-12-09] MEDS: metroNIDAZOLE 500 MG/100 ML BAG 100 MG IV ×2 (13:59→23:58)
--- NOTE | 2019-12-09 15:33 | PCM.PN.BLA ---
Progress Note The patient has CT scan today and the CT scan revealed colitis of the descending colon and sigmoid colon extending into the rectum. This explains the patient's bleeding and abdominal pain. I would recommend keeping the patient on no more than clear liquids and I have encouraged her to limit these. I have started Cipro and Flagyl. I will hold off on performing a colonoscopy at this point as she has active colitis. The patient is still having tenderness with no guarding or rebound tenderness on repeat physical exam. There are no surgical indications at this time. Continue minimal clear liquids as well as antibiotics and repeat labs in the morning. Jaron Herrera MD Pager: [facility] [address] [place] [address], [address] [place] [address] Office: [facility] Vital Signs/Narrative: Vital Signs Pulse 12/09/19 14:47 85
--- NOTE | 2019-12-09 15:41 | CASEMGMT ---
This RN CM has made several attempts throughout the day to complete CM assessment with pt at this time but pt has been on her personal cell phone. This RN CM will attempt again tomorrow. Ezequiel GILBERT CM
[2019-12-09 17:30] LABS: Bedside Glucose 207 mg/dL (70-110)
[2019-12-09] MEDS: Zolpidem Tartrate 5 MG Tablet PO (22:00)
[2019-12-10] VITALS (11 sets, daily range): BP systolic 115–139; BP diastolic 72–87; PULSE 68–134; RESP 16–18; TEMP 36.6–36.8; O2SAT 95–97
[2019-12-10] MEDS: Insulin Lispro 100 UNIT/ML INSULN.PEN SC ×3 (00:05→11:43)
[2019-12-10 00:16] LABS: Bedside Glucose 215 mg/dL (70-110)
[2019-12-10] MEDS: metroNIDAZOLE 500 MG/100 ML BAG 100 MG IV ×3 (05:31→22:15)
[2019-12-10 05:46] LABS: Bedside Glucose 150 mg/dL (70-110)
[2019-12-10] MEDS: Morphine 2 MG/ML Syringe IV ×4 (05:46→22:12)
[2019-12-10] MEDS: 0.9% Saline Lock 10 ML Syringe IV (05:46)
[2019-12-10 05:52] LABS: Absolute Lymphocyte Count 1.33 X10^3/uL (0.83-4.51); Absolute Neutrophil Count 6.8 X10^3/uL (2.0-7.7); Basophil% 0.6 % (0-1); Eosinophil# 0.27 X10^3/uL; Hematocrit 37.5 % (37-47); Hemoglobin 11.9 g/dL (12.0-15.0); Lymphocyte # 1.33 X10^3/ul (4.0); Lymphocyte % 14.6 % (19-41); Mean Corp Hgb Conc 31.7 g/dL (32-36); Mean Corpuscular Hgb 28.7 pg (27.0-32.0); Mean Corpuscular Volume 90.6 fL (81-99); Mean Platelet Vol. 9.3 fl (6.2-12.0); Monocyte# 0.64 X10^3/uL; Neutrophil # 6.77 X10^3/uL (2.7-7.7); Neutrophil % 74.6 % (47-70); Platelet Count 206 K/mm3 (150-450); RBC Distribution Width CV 13.8 % (11.6-14.6); RBC Distribution Width SD 45.6 fl (35.1-43.9); Red Blood Count 4.14 M/mm3 (4.2-5.4); White Blood Count 9.1 K/mm3 (4.4-11.0)
[2019-12-10 05:53] LABS: Basophil# 0.05 X10^3/uL; NRBC Flagged by Analyzer 0 % (0-5)
[2019-12-10 06:13] LABS: Anion Gap 7 (5-15); BUN 11 mg/dL (7-18); BUN/Creat Ratio 17.2 RATIO (10-20); Calcium,Total 7.8 mg/dL (8.5-10.1); Chloride 108 mmol/L (98-107); Creatinine, Serum 0.64 mg/dL (0.55-1.02); EST Glomerular Filtration Rate 100 mL/min (>60); Est Glom Filt Rate - Afr Amer 121 mL/min (>60); Estimated Creatinine Clearance 77.69 ml/min; Glucose 149 mg/dL (74-106); Potassium 3.8 mmol/L (3.5-5.1); Sodium Level 140 mmol/L (136-145)
[2019-12-10] MEDS: Ciprofloxacin 400 MG/200 ML BAG 200 MG IV ×2 (08:22→22:13)
--- NOTE | 2019-12-10 09:00 | PCM.PROGNOTE ---
Patient Problems: Active and Suspected Problems GI bleed (Acute) Subjective: Chief complaint: Follow-up after admission for GI bleed, found to have acute colitis of the transverse colon, left hemicolon and rectum. Patient seen and examined. No acute events overnight. Today, patient mentioned that her abdominal pain is getting better. Still having rectal bleeding but lesser amount. Denied fever or chills. She is tolerating clear liquids. Her vital signs are stable. - Physical Exam Vitals/I&O's: Vital Signs Temp Pulse Resp BP Pulse Ox 98.1 F 71 16 115/72 95 12/10/19 03:28 12/10/19 06:41 12/10/19 03:28 12/10/19 03:28 12/10/19 07:14 Oxygen Delivery Method Room Air Weight: 199 lb 4.766 oz Body Mass Index (BMI) 34.2 Intake and Output for Last 24 Hours 12/08/19 12/09/19 12/10/19 23:59 23:59 23:59 Intake Total 1342 / 1342 3191.66 / 3191.66 1203.34 / 1203.34 Balance 1342 / 1342 3191.66 / 3191.66 1203.34 / 1203.34 General: Alert, Oriented x3, Cooperative, No apparent distress HEENT: Atraumatic, PERRLA, EOMI, Normocephalic Oral: Moist Mucosa, No Gingival or Mucosal Lesions/ Ulcerations Neck: Supple, No JVD, Negative Carotid Bruits, Trachea Midline, Thyroid Normal Size and Texture Lungs: Clear to auscultation, Normal air movement, No rhonchi, No wheeze, No rales Cardiovascular: Regular rate, Regular Rhythm, Normal S1, Normal S2, PMI Normal Abdomen: Bowel Sounds Present, Soft, Non-Distended, No Hepato-splenomegaly, Tender - Minimal tenderness, no guarding or rigidity. Extremities: No clubbing, No cyanosis, No edema Skin: No rashes, No breakdown Lymphatic: No Cervical, Supraclavicular, or Inguinal Adenopathy Neurological: Cranial nerves II-XII grossly intact, Neuro grossly intact Psych/Mental Status: Normal Affect, Appropriate, Alert and oriented to time, place, person, mood and affect Microbiology Past 72 Hours 12/09/19 13:30 Stool Enteric Bacteriology - Final 12/08/19 17:15 Stool Stool Occult Blood (REANNA) - Final Occult Blood Positive Laboratory Results 12/08/19 17:15: Crossmatch See Detail 12/09/19 12:29: POC Glucose 331 H 12/09/19 17:20: POC Glucose 207 H 12/10/19 00:03: POC Glucose 215 H 12/10/19 05:12: WBC 9.1, RBC 4.14 L, Hgb 11.9 L, Hct 37.5, MCV 90.6, MCH 28.7, MCHC 31.7 L, RDW Std Deviation 45.6 H, RDW Coeff of Nisha 13.8, Plt Count 206, MPV 9.3, Immature Gran % (Auto) 0.200, Neut % (Auto) 74.6 H, Lymph % (Auto) 14.6 L, [place] % (Auto) 7.0, Eos % (Auto) 3.0, Baso % (Auto) 0.6, Absolute Neuts (auto) 6.8, Absolute Lymphs (auto) 1.33, Nucleated RBC % 0 12/10/19 05:12: Sodium 140, Potassium 3.8, Chloride 108 H, Carbon Dioxide 25.0, Anion Gap 7, BUN 11, Creatinine 0.64, Estim Creat Clear Calc 77.69, Est GFR (MDRD) Af Amer 121, Est GFR (MDRD) Non-Af 100, BUN/Creatinine Ratio 17.2, Glucose 149 H, Calcium 7.8 L 12/10/19 05:28: POC Glucose 150 H Clinical Impression(s) from Imaging Studies Abdomen/Pelvis CT 12/09/19 07:35 IMPRESSION: Findings in comparison with the colitis of the transverse colon and left hemicolon down to the rectum. Electronically Signed: Noah Washburn, at 10:49 EDT , Service support , Current Medications Acetaminophen (Tylenol) 650 mg PO Q6H PRN PRN PRN Reason: Pain Score 1-10/Temp > 100.7 F Last Admin: 12/09/19 06:38 Dose: 650 mg Documented by: Dextrose (D50w Syringe) 0 gm IV X1 PRN; Protocol PRN Reason: Hypoglycemia Glucagon () 1 mg IM .X1 PRN PRN Reason: Hypoglycemia Hydralazine HCl (Apresoline Iv) 10 mg IV Q8H PRN PRN PRN Reason: for SBP>160 Sodium Chloride () 1,000 mls @ 100 mls/hr IV .Q10H MAXI Last Infusion: 12/10/19 08:22 Dose: 0 mls/hr Documented by: Pantoprazole Sodium 40 mg/ (Sodium Chloride) 110 mls @ 330 mls/hr IV Q12 [facility] Last Infusion: 12/09/19 22:30 Dose: Infused Documented by: Ciprofloxacin (Cipro) 400 mg in 200 mls @ 200 mls/hr IV Q12 MAXI Last Admin: 12/10/19 08:22 Dose: 200 mls/hr Documented by: Metronidazole (Flagyl) 500 mg in 100 mls @ 100 mls/hr IV Q8 [facility] Last Infusion: 12/10/19 06:36 Dose: Infused Documented by: Insulin Human Lispro (Humalog Kwikpen (Bkc)) 0 unit SC Q6 [facility]; Protocol Last Admin: 12/10/19 05:30 Dose: 1 u Documented by: Morphine Sulfate () 1 - 2 mg IV Q4H PRN PRN PRN Reason: Pain Score 4-10/10 Last Admin: 12/10/19 05:46 Dose: 2 mg Documented by: Ondansetron HCl (Zofran) 4 mg IV Q8H PRN PRN PRN Reason: NAUSEA/VOMITING Last Admin: 12/09/19 13:56 Dose: 4 mg Documented by: Sodium Chloride () 10 - 40 ml IV UD PRN PRN Reason: SALINE FLUSH Last Admin: 12/10/19 05:46 Dose: 10 ml Documented by: Zolpidem Tartrate (Ambien (Generic)) 5 mg PO QHS PRN PRN PRN Reason: INSOMNIA Last Admin: 12/09/19 22:00 Dose: 5 mg Documented by: Medical Necessity - Tobacco Use Smoking Status: Never smoker Assessment/Plan All Active Problems GI bleed (Acute) This is a 64 years old female patient presented to the emergency room because of bleeding per rectum and she was found to have acute colitis of the transverse colon, left hemicolon and rectum. #1 acute colitis of the transverse colon/left hemicolon/rectum/severe sepsis: Probably due to ischemic colitis. On admission, patient was tachycardic, had leukocytosis and her lactic acid was 2.2. Severe sepsis was present on admission. Patient is on IV ciprofloxacin and Flagyl. CT scan abdomen and pelvis with IV and oral contrast reviewed as above. Remained on clear liquids, IV fluids and IV morphine PRN. Symptoms of abdominal pain and rectal bleeding started to improve but still there. She has been afebrile. Her vital signs are stable. Stool for enteric pathogens were negative. Repeat CBC and BMP from today reviewed, unremarkable, leukocytosis resolved. Plan to continue patient on clear liquids, continue IV antibiotics and IV fluids. #2 GI bleed: Attributed to the acute colitis. Patient still having rectal bleeding, lesser amount. Hemoglobin is down to 11.9 g/dL today which is due to both rectal bleeding and hemodilution. Plan to monitor, repeat H&H tomorrow morning, transfuse if hemoglobin less than 8 g/dL. #3 renal sufficiency: Probably acute secondary to blood loss. She has been on IV fluids, kidney function is back to normal, creatinine today is down to 0.69, normal. #4 type 1 diabetes mellitus: Blood sugar started to fluctuate, goes up to 200s and once up to 300s. She is only on sliding scale. Plan to resume nightly dose of Levemir, continue sliding scale and Accu-Cheks. #5 hypertension: Blood pressure stable, she is on IV hydralazine PRN. Lisinopril held. #6 depression/insomnia: Holding trazodone and Cymbalta. #7 DVT prophylaxis: SCDs. This note was generated with [employer] dictation software. It may contain incorrect words, spelling, and punctuation that were not noted in checking the note before signing. Inpatient E&M: 77825 Subs Hosp L2
--- NOTE | 2019-12-10 10:07 | PCM.PN.SRG ---
Patient Problems: Active and Suspected Problems GI bleed (Acute) Subjective: The patient is still having some lower abdominal pain and some spotting of bright red blood. She reports that her pain is improved and yesterday. She is tolerating clear liquid diet. - Physical Exam Vitals/I&O's: Vital Signs Temp Pulse Resp BP Pulse Ox 97.8 F 77 18 137/80 H 97 12/10/19 10:06 12/10/19 10:06 12/10/19 10:06 12/10/19 10:06 12/10/19 10:06 Oxygen Delivery Method Room Air Weight: 199 lb 4.766 oz Body Mass Index (BMI) 34.2 Intake and Output for Last 24 Hours 12/08/19 12/09/19 12/10/19 23:59 23:59 23:59 Intake Total 1342 / 1342 3191.66 / 3191.66 1403.34 / 1403.34 Balance 1342 / 1342 3191.66 / 3191.66 1403.34 / 1403.34 General: Alert, Oriented x3 Lungs: Normal air movement Abdomen: Soft, Tender - Tender in the lower abdomen with no guarding or rebound Microbiology Past 72 Hours 12/09/19 13:30 Stool Enteric Bacteriology - Final 12/08/19 17:15 Stool Stool Occult Blood (REANNA) - Final Occult Blood Positive Laboratory Results 12/08/19 17:15: Crossmatch See Detail 12/09/19 12:29: POC Glucose 331 H 12/09/19 17:20: POC Glucose 207 H 12/10/19 00:03: POC Glucose 215 H 12/10/19 05:12: WBC 9.1, RBC 4.14 L, Hgb 11.9 L, Hct 37.5, MCV 90.6, MCH 28.7, MCHC 31.7 L, RDW Std Deviation 45.6 H, RDW Coeff of Nisha 13.8, Plt Count 206, MPV 9.3, Immature Gran % (Auto) 0.200, Neut % (Auto) 74.6 H, Lymph % (Auto) 14.6 L, [place] % (Auto) 7.0, Eos % (Auto) 3.0, Baso % (Auto) 0.6, Absolute Neuts (auto) 6.8, Absolute Lymphs (auto) 1.33, Nucleated RBC % 0 12/10/19 05:12: Sodium 140, Potassium 3.8, Chloride 108 H, Carbon Dioxide 25.0, Anion Gap 7, BUN 11, Creatinine 0.64, Estim Creat Clear Calc 77.69, Est GFR (MDRD) Af Amer 121, Est GFR (MDRD) Non-Af 100, BUN/Creatinine Ratio 17.2, Glucose 149 H, Calcium 7.8 L 12/10/19 05:28: POC Glucose 150 H Current Medications Acetaminophen (Tylenol) 650 mg PO Q6H PRN PRN PRN Reason: Pain Score 1-10/Temp > 100.7 F Last Admin: 12/09/19 06:38 Dose: 650 mg Documented by: Dextrose (D50w Syringe) 0 gm IV X1 PRN; Protocol PRN Reason: Hypoglycemia Glucagon () 1 mg IM .X1 PRN PRN Reason: Hypoglycemia Hydralazine HCl (Apresoline Iv) 10 mg IV Q8H PRN PRN PRN Reason: for SBP>160 Sodium Chloride () 1,000 mls @ 100 mls/hr IV .Q10H [facility] Last Infusion: 12/10/19 08:22 Dose: 0 mls/hr Documented by: Pantoprazole Sodium 40 mg/ (Sodium Chloride) 110 mls @ 330 mls/hr IV Q12 [facility] Last Admin: 12/10/19 10:03 Dose: 330 mls/hr Documented by: Ciprofloxacin (Cipro) 400 mg in 200 mls @ 200 mls/hr IV Q12 [facility] Last Infusion: 12/10/19 10:05 Dose: Infused Documented by: Metronidazole (Flagyl) 500 mg in 100 mls @ 100 mls/hr IV Q8 [facility] Last Infusion: 12/10/19 06:36 Dose: Infused Documented by: Insulin Glargine (Lantus (Bkc)) 15 units SC QHS [facility] Insulin Human Lispro (Humalog Kwikpen (Bk)) 0 unit SC Q6 [facility]; Protocol Last Admin: 12/10/19 05:30 Dose: 1 u Documented by: Morphine Sulfate () 1 - 2 mg IV Q4H PRN PRN PRN Reason: Pain Score 4-10/10 Last Admin: 12/10/19 10:03 Dose: 2 mg Documented by: Ondansetron HCl (Zofran) 4 mg IV Q8H PRN PRN PRN Reason: NAUSEA/VOMITING Last Admin: 12/09/19 13:56 Dose: 4 mg Documented by: Sodium Chloride () 10 - 40 ml IV UD PRN PRN Reason: SALINE FLUSH Last Admin: 12/10/19 05:46 Dose: 10 ml Documented by: Zolpidem Tartrate (Ambien (Generic)) 5 mg PO QHS PRN PRN PRN Reason: INSOMNIA Last Admin: 12/09/19 22:00 Dose: 5 mg Documented by: Medical Necessity - Tobacco Use Smoking Status: Never smoker Assessment/Plan All Active Problems GI bleed (Acute) 64-year-old female with colitis 1. Patient has colitis of the descending colon as well as sigmoid colon. The patient is on a clear liquid diet and I started Cipro and Flagyl. Her white count is return to normal. Her pain is improving slowly. I recommend keeping her to clears until the pain resolves. Continue antibiotics. Plan for colonoscopy after resolution of colitis. Currently the patient not having any rebound tenderness or guarding so there is no surgical indication. Jaron Herrera MD Pager: [facility] [address] [place] [address], [address] [place] [address] Office:
--- NOTE | 2019-12-10 11:10 | CASEMGMT ---
OFELIA GUZMAN assessment: Face to Face with patient for initial transition planning/care coordination assessment. OFELIA GUZMAN introduced self and role at [facility], pt voices understanding and consents to assessment at this time. Pt is sitting up in bed in no distress at this time. Pt is A/Ox4 at this time and answers all questions appropriately at this time. Care providers, pharmacy, and demographics verified/updated at this time. Presentation: Pt c/o N/V overnight, now with rectal bleeding Admitting dx: GI bleed, lactic acidosis PCP: Margarito Specialists: Pt states no current specialists. Preferred Pharmacy: [facility] Insurance: [facility] A/B Prescription Benefit: [employer] Living Will/HPOA: Pt states does not have LW/HPOA and declines AD info at this time. LNOK: Benito/Emma Zamora, son/daughterinlaw; Nohemi Mae, daughter Living Arrangements: Pt states lives in basement of 1 story home with son/daughterinlaw on 1st floor and states no concerns at home at this time. Pt states is independent with ADL's. Transportation: Pt states will be getting her drivers license again and states no transportation concerns at this time. DME/HHC: Pt states has a glucometer but no other equipment and denies need for any further DME at this time. Pt states no hx of HHC or SNF in the past. Pt states no concerns with going home at time of discharge. Pt states is on disability for depression 'for years.' Pt states does not smoke or drink ETOH. Pt states no further concerns/needs at this time. CM to follow for any further discharge planning/needs. Advised pt to ask for CM if any further questions/concerns/needs arise, voices understanding. Pt Goal: Home Plan[place] OFELIA GUZMAN
[2019-12-10 11:51] LABS: Bedside Glucose 194 mg/dL (70-110)
[2019-12-10] MEDS: 0.9% Normal Saline 1,000 ML 100 ML IV ×2 (13:28→23:55)
[2019-12-10 17:11] LABS: Bedside Glucose 149 mg/dL (70-110)
[2019-12-10] MEDS: Zolpidem Tartrate 5 MG Tablet PO (22:15)
[2019-12-10 23:11] LABS: Bedside Glucose 185 mg/dL (70-110)
[2019-12-11] VITALS (9 sets, daily range): BP systolic 138–149; BP diastolic 69–87; PULSE 59–103; RESP 14–16; TEMP 36.7–37.1; O2SAT 94–96
[2019-12-11 06:09] LABS: Hematocrit 37.3 % (37-47); Hemoglobin 12.3 g/dL (12.0-15.0)
[2019-12-11] MEDS: metroNIDAZOLE 500 MG/100 ML BAG 100 MG IV ×3 (06:12→21:29)
[2019-12-11 06:40] LABS: Bedside Glucose 79 mg/dL (70-110)
[2019-12-11] MEDS: Ciprofloxacin 400 MG/200 ML BAG 200 MG IV ×2 (09:35→21:40)
[2019-12-11] MEDS: HYDROmorphone 0.5 MG/0.5 ML SYRINGE IV ×3 (09:36→23:50)
--- NOTE | 2019-12-11 09:51 | PN_ITS ---
Patient Problems: Active and Suspected Problems Acute colitis (Acute) GI bleed (Acute) Subjective: Chief complaint: Follow-up after ablation for GI bleed and acute colitis of the transverse colon, left hemicolon and rectum. Patient seen and examined. No acute events overnight. Abdominal pain is getting better, no more nausea or vomiting. She is tolerating clear liquids. Rectal bleeding is improving as well, very small amount of bleeding per rectum. She complained of restless legs overnight. Her vital signs are stable. - Physical Exam Vitals/I&O's: Vital Signs Temp Pulse Resp BP Pulse Ox 98.7 F 76 16 138/69 H 94 12/11/19 03:20 12/11/19 03:20 12/11/19 03:20 12/11/19 03:20 12/11/19 08:19 Oxygen Delivery Method Room Air Weight: 199 lb 4.766 oz Body Mass Index (BMI) 34.2 Intake and Output for Last 24 Hours 12/09/19 12/10/19 12/11/19 23:59 23:59 23:59 Intake Total 3191.66 / 3191.66 3858.34 / 3858.34 938.33 / 938.33 Balance 3191.66 / 3191.66 3858.34 / 3858.34 938.33 / 938.33 General: Alert, Oriented x3, Cooperative, No apparent distress HEENT: Atraumatic, PERRLA, EOMI, Normocephalic Oral: Moist Mucosa, No Gingival or Mucosal Lesions/ Ulcerations Neck: Supple, No JVD, Negative Carotid Bruits, Trachea Midline, Thyroid Normal Size and Texture Lungs: Clear to auscultation, Normal air movement, No rhonchi, No wheeze, No rales Cardiovascular: Regular rate, Regular Rhythm, Normal S1, Normal S2, PMI Normal Abdomen: Bowel Sounds Present, Soft, Non-Distended, No Hepato-splenomegaly, T ligia - Minimal tenderness, no guarding or rigidity. Extremities: No clubbing, No cyanosis, No edema Skin: No rashes, No breakdown Lymphatic: No Cervical, Supraclavicular, or Inguinal Adenopathy Neurological: Cranial nerves II-XII grossly intact, Neuro grossly intact Psych/Mental Status: Normal Affect, Appropriate, Alert and oriented to time, place, person, mood and affect Microbiology Past 72 Hours 12/09/19 13:30 Stool Enteric Bacteriology - Final 12/08/19 17:15 Stool Stool Occult Blood (REANNA) - Final Occult Blood Positive Laboratory Results 12/10/19 11:42: POC Glucose 194 H 12/10/19 17:02: POC Glucose 149 H 12/10/19 23:03: POC Glucose 185 H 12/11/19 05:32: Hgb 12.3, Hct 37.3 12/11/19 06:11: POC Glucose 79 Current Medications Acetaminophen (Tylenol) 650 mg PO Q6H PRN PRN PRN Reason: Pain Score 1-10/Temp > 100.7 F Last Admin: 12/09/19 06:38 Dose: 650 mg Documented by: Dextrose (D50w Syringe) 0 gm IV X1 PRN; Protocol PRN Reason: Hypoglycemia Duloxetine HCl (Cymbalta) 60 mg PO DAILY [facility] Glucagon () 1 mg IM .X1 PRN PRN Reason: Hypoglycemia Hydralazine HCl (Apresoline Iv) 10 mg IV Q8H PRN PRN PRN Reason: for SBP>160 Hydromorphone HCl (Dilaudid Inj) 0.5 mg IV Q3H PRN PRN PRN Reason: Pain Score 6-10/10 Last Admin: 12/11/19 09:36 Dose: 0.5 mg Documented by: Sodium Chloride () 1,000 mls @ 100 mls/hr IV .Q10H [facility] Last Infusion: 12/11/19 07:15 Dose: 100 mls/hr Documented by: Pantoprazole Sodium 40 mg/ (Sodium Chloride) 110 mls @ 330 mls/hr IV Q12 [facility] Last Infusion: 12/11/19 08:55 Dose: Infused Documented by: Ciprofloxacin (Cipro) 400 mg in 200 mls @ 200 mls/hr IV Q12 [facility] Last Admin: 12/11/19 09:35 Dose: 200 mls/hr Documented by: Metronidazole (Flagyl) 500 mg in 100 mls @ 100 mls/hr IV Q8 [facility] Last Infusion: 12/11/19 07:12 Dose: Infused Documented by: Insulin Glargine (Lantus (Bk)) 15 units SC QHS [facility] Last Admin: 12/10/19 23:05 Dose: 15 units Documented by: Insulin Human Lispro (Humalog Kwikpen ([facility])) 0 unit SC Q6 [facility]; Protocol Last Admin: 12/11/19 06:12 Dose: Not Given Documented by: Lisinopril (Zestril) 10 mg PO DAILY [facility] Ondansetron HCl (Zofran) 4 mg IV Q8H PRN PRN PRN Reason: NAUSEA/VOMITING Last Admin: 12/09/19 13:56 Dose: 4 mg Documented by: Sodium Chloride () 10 - 40 ml IV UD PRN PRN Reason: SALINE FLUSH Last Admin: 12/10/19 05:46 Dose: 10 ml Documented by: Trazodone HCl (Desyrel) 200 mg PO QHS [facility] Zolpidem Tartrate (Ambien (Generic)) 5 mg PO QHS PRN PRN PRN Reason: INSOMNIA Last Admin: 12/10/19 22:15 Dose: 5 mg Documented by: Medical Necessity - Tobacco Use Smoking Status: Never smoker Assessment/Plan All Active Problems Acute colitis (Acute) GI bleed (Acute) This is a 64 years old female patient presented to the emergency room because of bleeding per rectum and she was found to have acute colitis of the transverse colon, left hemicolon and rectum. #1 acute colitis of the transverse colon/left hemicolon/rectum/severe sepsis: Probably due to ischemic colitis. She is on IV ciprofloxacin and Flagyl as well as IV fluids and pain medications. Abdominal pain as well as activity is improving. Her vital signs are stable. She is tolerating clear liquids. Stool for enteric pathogens were negative. Plan to continue same treatment, may advance diet to full liquid diet later today if okay with surgery. #2 GI bleed: Attributed to the acute colitis. Rectal bleeding continue to improve, very small amount of bleeding per rectum. Hemoglobin and hematocrit are stable, actually more globin is trending up, it is 12.3 g/dL today. #3 renal sufficiency: Probably acute secondary to blood loss. She has been on IV fluids, kidney function is back to normal, creatinine is down to 0.69, normal. #4 type 1 diabetes mellitus: Blood sugar has been stable. She is back on her night dose of Lantus, sliding scale. Plan to continue same treatment. #5 hypertension: Blood pressure stable, continue IV hydralazine PRN, resume lisinopril. #6 depression/insomnia: Resume trazodone and Cymbalta. #7 DVT prophylaxis: SCDs. This note was generated with [employer] dictation software. It may contain incorrect words, spelling, and punctuation that were not noted in checking the note before signing. Inpatient E&M: 52299 Subs Hosp L2
[2019-12-11] MEDS: Lisinopril 10 MG Tablet PO (10:28)
[2019-12-11] MEDS: DULoxetine Hcl 60 MG Capsule PO (10:28)
--- NOTE | 2019-12-11 11:01 | PCM.PN.SRG ---
Patient Problems: Active and Suspected Problems Acute colitis (Acute) GI bleed (Acute) Subjective: Patient having pain, but improved from yesterday. Bleeding improved as well. - Physical Exam Vitals/I&O's: Vital Signs Temp Pulse Resp BP Pulse Ox 98.5 F 78 14 149/83 H 95 12/11/19 09:20 12/11/19 09:20 12/11/19 09:20 12/11/19 09:20 12/11/19 09:20 Oxygen Delivery Method Room Air Weight: 199 lb 4.766 oz Body Mass Index (BMI) 34.2 Intake and Output for Last 24 Hours 12/09/19 12/10/19 12/11/19 23:59 23:59 23:59 Intake Total 3191.66 / 3191.66 3858.34 / 3858.34 1138.33 / 1138.33 Balance 3191.66 / 3191.66 3858.34 / 3858.34 1138.33 / 1138.33 General: Alert, Oriented x3 Lungs: Normal air movement Cardiovascular: Regular Rhythm Abdomen: Soft, Non-Distended, Tender - lower abdomen. no guarding. Microbiology Past 72 Hours 12/09/19 13:30 Stool Enteric Bacteriology - Final 12/08/19 17:15 Stool Stool Occult Blood (REANNA) - Final Occult Blood Positive Laboratory Results 12/10/19 11:42: POC Glucose 194 H 12/10/19 17:02: POC Glucose 149 H 12/10/19 23:03: POC Glucose 185 H 12/11/19 05:32: Hgb 12.3, Hct 37.3 12/11/19 06:11: POC Glucose 79 Current Medications Acetaminophen (Tylenol) 650 mg PO Q6H PRN PRN PRN Reason: Pain Score 1-10/Temp > 100.7 F Last Admin: 12/09/19 06:38 Dose: 650 mg Documented by: Dextrose (D50w Syringe) 0 gm IV X1 PRN; Protocol PRN Reason: Hypoglycemia Duloxetine HCl (Cymbalta) 60 mg PO DAILY [facility] Last Admin: 12/11/19 10:28 Dose: 60 mg Documented by: Glucagon () 1 mg IM .X1 PRN PRN Reason: Hypoglycemia Hydralazine HCl (Apresoline Iv) 10 mg IV Q8H PRN PRN PRN Reason: for SBP>160 Hydromorphone HCl (Dilaudid Inj) 0.5 mg IV Q3H PRN PRN PRN Reason: Pain Score 6-10/10 Last Admin: 12/11/19 09:36 Dose: 0.5 mg Documented by: Sodium Chloride () 1,000 mls @ 100 mls/hr IV .Q10H [facility] Last Infusion: 12/11/19 07:15 Dose: 100 mls/hr Documented by: Pantoprazole Sodium 40 mg/ (Sodium Chloride) 110 mls @ 330 mls/hr IV Q12 [facility] Last Infusion: 12/11/19 08:55 Dose: Infused Documented by: Ciprofloxacin (Cipro) 400 mg in 200 mls @ 200 mls/hr IV Q12 [facility] Last Infusion: 12/11/19 10:35 Dose: Infused Documented by: Metronidazole (Flagyl) 500 mg in 100 mls @ 100 mls/hr IV Q8 [facility] Last Infusion: 12/11/19 07:12 Dose: Infused Documented by: Insulin Glargine (Lantus (Bkc)) 15 units SC QHS [facility] Last Admin: 12/10/19 23:05 Dose: 15 units Documented by: Insulin Human Lispro (Humalog Kwikpen (Bk)) 0 unit SC Q6 [facility]; Protocol Last Admin: 12/11/19 06:12 Dose: Not Given Documented by: Lisinopril (Zestril) 10 mg PO DAILY [facility] Last Admin: 12/11/19 10:28 Dose: 10 mg Documented by: Ondansetron HCl (Zofran) 4 mg IV Q8H PRN PRN PRN Reason: NAUSEA/VOMITING Last Admin: 12/09/19 13:56 Dose: 4 mg Documented by: Sodium Chloride () 10 - 40 ml IV UD PRN PRN Reason: SALINE FLUSH Last Admin: 12/10/19 05:46 Dose: 10 ml Documented by: Trazodone HCl (Desyrel) 200 mg PO QHS [facility] Zolpidem Tartrate (Ambien (Generic)) 5 mg PO QHS PRN PRN PRN Reason: INSOMNIA Last Admin: 12/10/19 22:15 Dose: 5 mg Documented by: Medical Necessity - Tobacco Use Smoking Status: Never smoker Assessment/Plan All Active Problems Acute colitis (Acute) GI bleed (Acute) 64 year old female with colitis. 1. Patient reports improvement in pain but it is still there. Passing flatus. 2. Recommend continue clears and antibiotics. Hold on diet until pain resolves. I explained that i would be concerned with her going home too soon on oral antibiotics as Flagyl may cause upset stomach and diarrhea which would exacerbate colitis. Jaron Herrera MD
[2019-12-11] MEDS: 0.9% Normal Saline 1,000 ML 100 ML IV ×2 (11:05→23:28)
[2019-12-11] MEDS: Insulin Lispro 100 UNIT/ML INSULN.PEN SC ×2 (11:47→23:56)
[2019-12-11 11:50] LABS: Bedside Glucose 266 mg/dL (70-110)
[2019-12-11] MEDS: 0.9% Saline Lock 10 ML Syringe IV ×3 (15:51→23:51)
[2019-12-11 17:35] LABS: Bedside Glucose 113 mg/dL (70-110)
[2019-12-11 20:51] LABS: Bedside Glucose 193 mg/dL (70-110)
[2019-12-11] MEDS: Ondansetron 4 MG/2 ML Vial IV (20:58)
[2019-12-11] MEDS: Zolpidem Tartrate 5 MG Tablet PO (21:12)
[2019-12-12] VITALS (11 sets, daily range): BP systolic 138–151; BP diastolic 74–87; PULSE 58–77; RESP 16–18; TEMP 36.7–37.2; O2SAT 93–95
[2019-12-12] LABS: Bedside Glucose 204 mg/dL (70-110)
[2019-12-12 05:26] LABS: Bedside Glucose 121 mg/dL (70-110)
[2019-12-12] MEDS: metroNIDAZOLE 500 MG/100 ML BAG 100 MG IV ×3 (05:26→22:11)
[2019-12-12] MEDS: Acetaminophen 325 MG Tablet 650 MG PO (05:26)
--- NOTE | 2019-12-12 07:46 | PCM.PN.SRG ---
Patient Problems: Active and Suspected Problems GI bleed (Acute) Subjective: Patient reports that her pain is improved. She says she has not had any further bleeding per rectum since yesterday morning. She is still having some mild pain. - Physical Exam Vitals/I&O's: Vital Signs Temp Pulse Resp BP Pulse Ox 98.4 F 63 16 141/87 H 95 12/12/19 03:20 12/12/19 07:36 12/12/19 03:20 12/12/19 03:20 12/12/19 03:20 Oxygen Delivery Method Room Air Weight: 199 lb 4.766 oz Body Mass Index (BMI) 34.2 Intake and Output for Last 24 Hours 12/10/19 12/11/19 12/12/19 23:59 23:59 23:59 Intake Total 3858.34 / 3858.34 4145.00 / 4145.00 503.33 / 503.33 Balance 3858.34 / 3858.34 4145.00 / 4145.00 503.33 / 503.33 General: Alert, Oriented x3 Lungs: Normal air movement Abdomen: Soft, Non-Distended, Tender - Tender to deep palpation in the lower abdomen Microbiology Past 72 Hours 12/09/19 13:30 Stool Enteric Bacteriology - Final Laboratory Results 12/11/19 11:46: POC Glucose 266 H 12/11/19 17:31: POC Glucose 113 H 12/11/19 20:43: POC Glucose 193 H 12/11/19 23:55: POC Glucose 204 H 12/12/19 05:18: POC Glucose 121 H Current Medications Acetaminophen (Tylenol) 650 mg PO Q6H PRN PRN PRN Reason: Pain Score 1-10/Temp > 100.7 F Last Admin: 12/12/19 05:26 Dose: 650 mg Documented by: Dextrose (D50w Syringe) 0 gm IV X1 PRN; Protocol PRN Reason: Hypoglycemia Duloxetine HCl (Cymbalta) 60 mg PO DAILY [facility] Last Admin: 12/11/19 10:28 Dose: 60 mg Documented by: Glucagon () 1 mg IM .X1 PRN PRN Reason: Hypoglycemia Hydralazine HCl (Apresoline Iv) 10 mg IV Q8H PRN PRN PRN Reason: for SBP>160 Hydromorphone HCl (Dilaudid Inj) 0.5 mg IV Q3H PRN PRN PRN Reason: Pain Score 6-10/10 Last Admin: 12/11/19 23:50 Dose: 0.5 mg Documented by: Sodium Chloride () 1,000 mls @ 100 mls/hr IV .Q10H [facility] Last Infusion: 12/12/19 03:30 Dose: 0 mls/hr Documented by: Pantoprazole Sodium 40 mg/ (Sodium Chloride) 110 mls @ 330 mls/hr IV Q12 [facility] Last Infusion: 12/11/19 21:26 Dose: Infused Documented by: Ciprofloxacin (Cipro) 400 mg in 200 mls @ 200 mls/hr IV Q12 [facility] Last Infusion: 12/11/19 22:40 Dose: Infused Documented by: Metronidazole (Flagyl) 500 mg in 100 mls @ 100 mls/hr IV Q8 [facility] Last Infusion: 12/12/19 07:38 Dose: Infused Documented by: Insulin Glargine (Lantus ([facility])) 15 units SC QHS [facility] Last Admin: 12/11/19 21:13 Dose: 10 units Documented by: Insulin Human Lispro (Humalog Kwikpen ([facility])) 0 unit SC Q6 [facility]; Protocol Last Admin: 12/12/19 05:35 Dose: Not Given Documented by: Lisinopril (Zestril) 10 mg PO DAILY [facility] Last Admin: 12/11/19 10:28 Dose: 10 mg Documented by: Ondansetron HCl (Zofran) 4 mg IV Q8H PRN PRN PRN Reason: NAUSEA/VOMITING Last Admin: 12/11/19 20:58 Dose: 4 mg Documented by: Sodium Chloride () 10 - 40 ml IV UD PRN PRN Reason: SALINE FLUSH Last Admin: 12/11/19 23:51 Dose: 10 ml Documented by: Trazodone HCl (Desyrel) 200 mg PO QHS [facility] Last Admin: 12/11/19 21:13 Dose: Not Given Documented by: Zolpidem Tartrate (Ambien (Generic)) 5 mg PO QHS PRN PRN PRN Reason: INSOMNIA Last Admin: 12/11/19 21:12 Dose: 5 mg Documented by: Medical Necessity - Tobacco Use Smoking Status: Never smoker Assessment/Plan All Active Problems Acute colitis (Acute) GI bleed (Acute) 64-year-old female with colitis 1. The patient has descending colon colitis, likely ischemic. Infectious etiology is been ruled out. The patient is slowly improving. She reports that she is having less pain today but is still there on deep palpation of her abdomen. She does not report any further GI bleeding. Once pain subsides she can start a diet and I will perform a colonoscopy at a later date. Jaron Herrera MD Pager: [facility] [address] [place] [address] [address] [place] [address] Office:
[2019-12-12] MEDS: 0.9% Saline Lock 10 ML Syringe IV ×2 (08:41→17:42)
[2019-12-12] MEDS: HYDROmorphone 0.5 MG/0.5 ML SYRINGE IV ×2 (08:41→17:42)
--- NOTE | 2019-12-12 09:43 | PCM.PROGNOTE ---
Patient Problems: Active and Suspected Problems GI bleed (Acute) Subjective: Chief complaint: Follow-up after ablation for GI bleed and acute colitis of the transverse colon, left hemicolon and rectum. Patient seen and examined. No acute events overnight. She denied any more active bleeding. Abdominal pain continue to improve slowly. She still having tenderness on her abdomen. Denied nausea vomiting. She is tolerating clear liquids. Her vital signs are stable. - Physical Exam Vitals/I&O's: Vital Signs Temp Pulse Resp BP Pulse Ox 98.4 F 63 16 141/87 H 95 12/12/19 03:20 12/12/19 07:36 12/12/19 03:20 12/12/19 03:20 12/12/19 03:20 Oxygen Delivery Method Room Air Weight: 199 lb 4.766 oz Body Mass Index (BMI) 34.2 Intake and Output for Last 24 Hours 12/10/19 12/11/19 12/12/19 23:59 23:59 23:59 Intake Total 3858.34 / 3858.34 4145.00 / 4145.00 503.33 / 503.33 Balance 3858.34 / 3858.34 4145.00 / 4145.00 503.33 / 503.33 General: Alert, Oriented x3, Cooperative, No apparent distress HEENT: Atraumatic, PERRLA, EOMI, Normocephalic Oral: Moist Mucosa, No Gingival or Mucosal Lesions/ Ulcerations Neck: Supple, No JVD, Negative Carotid Bruits, Trachea Midline, Thyroid Normal Size and Texture Lungs: Clear to auscultation, Normal air movement, No rhonchi, No wheeze, No rales, Diminished Cardiovascular: Regular rate, Regular Rhythm, Normal S1, Normal S2, PMI Normal Abdomen: Bowel Sounds Present, Soft, Non-Distended, No Hepato-splenomegaly, Tender - Minimal tenderness. Extremities: No clubbing, No cyanosis, No edema Skin: No rashes, No breakdown Lymphatic: No Cervical, Supraclavicular, or Inguinal Adenopathy Neurological: Cranial nerves II-XII grossly intact, Neuro grossly intact Psych/Mental Status: Normal Affect, Appropriate, Alert and oriented to time, place, person, mood and affect Microbiology Past 72 Hours 12/09/19 13:30 Stool Enteric Bacteriology - Final Laboratory Results 12/11/19 11:46: POC Glucose 266 H 12/11/19 17:31: POC Glucose 113 H 12/11/19 20:43: POC Glucose 193 H 12/11/19 23:55: POC Glucose 204 H 12/12/19 05:18: POC Glucose 121 H Current Medications Acetaminophen (Tylenol) 650 mg PO Q6H PRN PRN PRN Reason: Pain Score 1-10/Temp > 100.7 F Last Admin: 12/12/19 05:26 Dose: 650 mg Documented by: Dextrose (D50w Syringe) 0 gm IV X1 PRN; Protocol PRN Reason: Hypoglycemia Duloxetine HCl (Cymbalta) 60 mg PO DAILY [facility] Last Admin: 12/11/19 10:28 Dose: 60 mg Documented by: Glucagon () 1 mg IM .X1 PRN PRN Reason: Hypoglycemia Hydralazine HCl (Apresoline Iv) 10 mg IV Q8H PRN PRN PRN Reason: for SBP>160 Hydromorphone HCl (Dilaudid Inj) 0.5 mg IV Q3H PRN PRN PRN Reason: Pain Score 6-10/10 Last Admin: 12/12/19 08:41 Dose: 0.5 mg Documented by: Sodium Chloride () 1,000 mls @ 100 mls/hr IV .Q10H [facility] Last Infusion: 12/12/19 08:00 Dose: 100 mls/hr Documented by: Pantoprazole Sodium 40 mg/ (Sodium Chloride) 110 mls @ 330 mls/hr IV Q12 [facility] Last Infusion: 12/11/19 21:26 Dose: Infused Documented by: Ciprofloxacin (Cipro) 400 mg in 200 mls @ 200 mls/hr IV Q12 [facility] Last Infusion: 12/11/19 22:40 Dose: Infused Documented by: Metronidazole (Flagyl) 500 mg in 100 mls @ 100 mls/hr IV Q8 [facility] Last Infusion: 12/12/19 07:38 Dose: Infused Documented by: Insulin Glargine (Lantus (Bk)) 15 units SC QHS [facility] Last Admin: 12/11/19 21:13 Dose: 10 units Documented by: Insulin Human Lispro (Humalog Kwikpen ([facility])) 0 unit SC Q6 [facility]; Protocol Last Admin: 12/12/19 05:35 Dose: Not Given Documented by: Lisinopril (Zestril) 10 mg PO DAILY [facility] Last Admin: 12/11/19 10:28 Dose: 10 mg Documented by: Ondansetron HCl (Zofran) 4 mg IV Q8H PRN PRN PRN Reason: NAUSEA/VOMITING Last Admin: 12/11/19 20:58 Dose: 4 mg Documented by: Sodium Chloride () 10 - 40 ml IV UD PRN PRN Reason: SALINE FLUSH Last Admin: 12/12/19 08:41 Dose: 10 ml Documented by: Trazodone HCl (Desyrel) 200 mg PO QHS MAXI Last Admin: 12/11/19 21:13 Dose: Not Given Documented by: Zolpidem Tartrate (Ambien (Generic)) 5 mg PO QHS PRN PRN PRN Reason: INSOMNIA Last Admin: 12/11/19 21:12 Dose: 5 mg Documented by: Medical Necessity - Tobacco Use Smoking Status: Never smoker Assessment/Plan All Active Problems Acute colitis (Acute) GI bleed (Acute) This is a 64 years old female patient presented to the emergency room because of bleeding per rectum and she was found to have acute colitis of the transverse colon, left hemicolon and rectum. #1 acute colitis of the transverse colon/left hemicolon/rectum/severe sepsis: Probably due to ischemic colitis. Remained on IV ciprofloxacin and Flagyl as well as IV fluids and pain medications. She has no more active rectal bleeding, abdominal pain continue to improve slowly. Her vital signs are stable. She is tolerating clear liquids. Stool for enteric pathogens were negative. Plan: Continue same treatment, advance diet to full liquid diet tonight, possible DC home tomorrow. #2 GI bleed: Attributed to the acute colitis. She has no more rectal bleeding. Hemoglobin and hematocrit are stable. #3 renal sufficiency: Probably acute secondary to blood loss. She has been on IV fluids, kidney function is back to normal, creatinine is down to 0.69, normal. #4 type 1 diabetes mellitus: Blood sugar has been stable. She is back on her night dose of Lantus, sliding scale. continue same treatment. #5 hypertension: Blood pressure stable, continue IV hydralazine PRN, continue lisinopril. #6 depression/insomnia: Continue trazodone and Cymbalta. #7 DVT prophylaxis: SCDs. This note was generated with Meilime[employer] software. It may contain incorrect words, spelling, and punctuation that were not noted in checking the note before signing. Inpatient E&M: 70282 Subs Hosp L2
[2019-12-12] MEDS: DULoxetine Hcl 60 MG Capsule PO (10:06)
[2019-12-12] MEDS: Lisinopril 10 MG Tablet PO (10:06)
[2019-12-12] MEDS: Ciprofloxacin 400 MG/200 ML BAG 200 MG IV ×2 (10:42→22:11)
[2019-12-12] MEDS: Insulin Lispro 100 UNIT/ML INSULN.PEN SC ×3 (12:17→23:44)
[2019-12-12 12:46] LABS: Bedside Glucose 253 mg/dL (70-110)
[2019-12-12] MEDS: 0.9% Normal Saline 1,000 ML 100 ML IV (15:44)
[2019-12-12 17:51] LABS: Bedside Glucose 297 mg/dL (70-110)
[2019-12-12] MEDS: traZODone 100 MG Tablet 200 MG PO (21:29)
[2019-12-12] MEDS: Zolpidem Tartrate 5 MG Tablet PO (21:33)
[2019-12-12 21:36] LABS: Bedside Glucose 295 mg/dL (70-110)
[2019-12-12 23:50] LABS: Bedside Glucose 271 mg/dL (70-110)
[2019-12-13] MEDS: 0.9% Normal Saline 1,000 ML 100 ML IV (01:44)
[2019-12-13 03:00] VITALS: PULSE 66
[2019-12-13 05:37] VITALS: BP 145/79; PULSE 68; RESP 18; TEMP 36.9; O2SAT 96
[2019-12-13] MEDS: metroNIDAZOLE 500 MG/100 ML BAG 100 MG IV (05:41)
[2019-12-13] MEDS: Insulin Lispro 100 UNIT/ML INSULN.PEN SC (05:41)
[2019-12-13 05:51] LABS: Bedside Glucose 153 mg/dL (70-110)
[2019-12-13 05:51] LABS: Absolute Lymphocyte Count 1.33 X10^3/uL (0.83-4.51); Absolute Neutrophil Count 4.7 X10^3/uL (2.0-7.7); Basophil# 0.04 X10^3/uL; Basophil% 0.6 % (0-1); Eosinophil# 0.44 X10^3/uL; Eosinophils% 6.1 % (0-5); Hematocrit 37.3 % (37-47); Hemoglobin 12.2 g/dL (12.0-15.0); Lymphocyte # 1.33 X10^3/ul (4.0); Lymphocyte % 18.3 % (19-41); Mean Corp Hgb Conc 32.7 g/dL (32-36); Mean Corpuscular Hgb 29.3 pg (27.0-32.0); Mean Corpuscular Volume 89.4 fL (81-99); Mean Platelet Vol. 9.1 fl (6.2-12.0); Monocyte# 0.69 X10^3/uL; Monocyte% 9.5 % (0-10); NRBC Flagged by Analyzer 0 % (0-5); Neutrophil # 4.73 X10^3/uL (2.7-7.7); Neutrophil % 64.9 % (47-70); Platelet Count 235 K/mm3 (150-450); RBC Distribution Width CV 13.9 % (11.6-14.6); RBC Distribution Width SD 44.4 fl (35.1-43.9); Red Blood Count 4.17 M/mm3 (4.2-5.4); White Blood Count 7.3 K/mm3 (4.4-11.0)
[2019-12-13 06:05] LABS: Anion Gap 4 (5-15); BUN 7 mg/dL (7-18); BUN/Creat Ratio 10.5 RATIO (10-20); Calcium,Total 8.3 mg/dL (8.5-10.1); Chloride 109 mmol/L (98-107); Creatinine, Serum 0.66 mg/dL (0.55-1.02); EST Glomerular Filtration Rate 95 mL/min (>60); Est Glom Filt Rate - Afr Amer 115 mL/min (>60); Estimated Creatinine Clearance 75.34 ml/min; Glucose 163 mg/dL (74-106); Potassium 3.6 mmol/L (3.5-5.1); Sodium Level 140 mmol/L (136-145)
[2019-12-13 06:53] VITALS: PULSE 64
--- NOTE | 2019-12-13 08:30 | DCINST_ITS ---
- Discharge Diagnoses Current Active Problems: Current Active and Chronic Problems GI bleed (Acute) Insomnia (Chronic) Depression (Chronic) Type 1 diabetes mellitus (Chronic) Hypertension (Chronic) You will use the following diet at home:: Calorie/Carbohydrate Controlled (specify 1200, 1400, etc) - 1800 rojas. Your food should be the consistency of: Soft (bite-sized & easy to chew/swallow) Discharge Activity: Return to Normal Activity Weight Bearing Status: Weight bearing as tolerated Call your doctor if you observe: Fever of 101 or Higher, Shortness of breath, Dizziness, Fainting spells, Chest pain, Increased palpitations (irregular heartbeat), Uncontrolled pain Instructions: Ischemic Colitis Allergies/Adverse Reactions: Allergies No Known Allergies Allergy (Verified 12/08/19 16:38) Medications to take at Discharge Aspirin/Acetaminophen/Caffeine [Headache Relief Caplet] 1 tab PO DAILY 12/08/19 Duloxetine Hcl [Cymbalta] 60 mg PO DAILY 12/08/19 Insulin Aspart [Novolog Vial] 10 - 15 units SQ TIDCM 12/08/19 Insulin Detemir [Levemir] 15 units SQ QHS 12/08/19 Insulin Detemir [Levemir] 45 units SQ DAILY@1200 12/08/19 Lisinopril [Zestril] 10 mg PO DAILY 12/08/19 Trazodone HCl 200 mg PO QHS 12/08/19 Ciprofloxacin [Cipro] 500 mg PO BID #10 tab 12/13/19 Oxycodone [Oxyir] 5 mg PO Q8H PRN PRN 3 Days #10 tablet 12/13/19 metroNIDAZOLE [Flagyl] 500 mg PO Q8H #15 tab 12/13/19 The following prescriptions were given: Ciprofloxacin [Cipro] 500 mg PO BID #10 tab Transmission Status: Pending to [facility] metroNIDAZOLE [Flagyl] 500 mg PO Q8H #15 tab Transmission Status: Pending to [facility] Oxycodone [Oxyir] 5 mg PO Q8H PRN PRN 3 Days #10 tablet PRN Reason: Pain Score 6-10/10 Transmission Status: Received by [facility] Primary Care Physician: Ronnie Pimentel MD [Primary Care Provider] - Please follow up with your Primary Care Physician in: 1 week. Test Results: Test results from this visit will be discussed in further detail at your follow- up appointment, if applicable. Please Follow Up With: Jaron Herrera MD When: 4 weeks.
[2019-12-13 09:34] VITALS: BP 149/82; PULSE 71; RESP 16; TEMP 36.7; O2SAT 96
[2019-12-13] MEDS: Lisinopril 10 MG Tablet PO (09:40)
[2019-12-13] MEDS: HYDROmorphone 0.5 MG/0.5 ML SYRINGE IV (09:40)
[2019-12-13] MEDS: DULoxetine Hcl 60 MG Capsule PO (09:40)
--- NOTE | 2019-12-13 10:14 | PN.SURG_ITS ---
Patient Problems: Active and Suspected Problems GI bleed (Acute) Subjective: Patient states her abdominal pain is much improved rates it a 5/10 mainly on the left side denies any increase in pain with change from clears to full's. Patient states she is going home today - Physical Exam Vitals/I&O's: Vital Signs Temp Pulse Resp BP Pulse Ox 98.1 F 71 16 149/82 H 96 12/13/19 09:34 12/13/19 09:34 12/13/19 09:34 12/13/19 09:34 12/13/19 09:34 Oxygen Delivery Method Room Air Weight: 199 lb 4.766 oz Body Mass Index (BMI) 34.2 Intake and Output for Last 24 Hours 12/11/19 12/12/19 12/13/19 23:59 23:59 23:59 Intake Total 4145.00 / 4145.00 3100.00 / 3100.00 756.67 / 756.67 Balance 4145.00 / 4145.00 3100.00 / 3100.00 756.67 / 756.67 General: Alert, Oriented x3, Cooperative, No apparent distress Lungs: Normal air movement Cardiovascular: Regular rate Abdomen: Soft, Non-Distended, Tender - Mildly tender epigastric/left lower quadrant, no rebound, no guarding Microbiology Past 72 Hours 12/09/19 13:30 Stool Enteric Bacteriology - Final Laboratory Results 12/12/19 12:14: POC Glucose 253 H 12/12/19 17:36: POC Glucose 297 H 12/12/19 21:21: POC Glucose 295 H 12/12/19 23:43: POC Glucose 271 H 12/13/19 05:30: WBC 7.3, RBC 4.17 L, Hgb 12.2, Hct 37.3, MCV 89.4, MCH 29.3, MCHC 32.7, RDW Std Deviation 44.4 H, RDW Coeff of Nisha 13.9, Plt Count 235, MPV 9.1, Immature Gran % (Auto) 0.600, Neut % (Auto) 64.9, Lymph % (Auto) 18.3 L, Cross % (Auto) 9.5, Eos % (Auto) 6.1 H, Baso % (Auto) 0.6, Absolute Neuts (auto) 4.7, Absolute Lymphs (auto) 1.33, Nucleated RBC % 0 12/13/19 05:30: Sodium 140, Potassium 3.6, Chloride 109 H, Carbon Dioxide 27.0, Anion Gap 4 L, BUN 7, Creatinine 0.66, Estim Creat Clear Calc 75.34, Est GFR (MDRD) Af Amer 115, Est GFR (MDRD) Non-Af 95, BUN/Creatinine Ratio 10.5, Glucose 163 H, Calcium 8.3 L 12/13/19 05:40: POC Glucose 153 H Current Medications Acetaminophen (Tylenol) 650 mg PO Q6H PRN PRN PRN Reason: Pain Score 1-10/Temp > 100.7 F Last Admin: 12/12/19 05:26 Dose: 650 mg Documented by: Dextrose (D50w Syringe) 0 gm IV X1 PRN; Protocol PRN Reason: Hypoglycemia Duloxetine HCl (Cymbalta) 60 mg PO DAILY [facility] Last Admin: 12/13/19 09:40 Dose: 60 mg Documented by: Glucagon () 1 mg IM .X1 PRN PRN Reason: Hypoglycemia Hydralazine HCl (Apresoline Iv) 10 mg IV Q8H PRN PRN PRN Reason: for SBP>160 Hydromorphone HCl (Dilaudid Inj) 0.5 mg IV Q3H PRN PRN PRN Reason: Pain Score 6-10/10 Last Admin: 12/13/19 09:40 Dose: 0.5 mg Documented by: Sodium Chloride () 1,000 mls @ 100 mls/hr IV .Q10H [facility] Last Infusion: 12/13/19 06:03 Dose: 100 mls/hr Documented by: Pantoprazole Sodium 40 mg/ (Sodium Chloride) 110 mls @ 330 mls/hr IV Q12 [facility] Last Admin: 12/13/19 09:40 Dose: 330 mls/hr Documented by: Ciprofloxacin (Cipro) 400 mg in 200 mls @ 200 mls/hr IV Q12 [facility] Last Infusion: 12/12/19 23:11 Dose: Infused Documented by: Metronidazole (Flagyl) 500 mg in 100 mls @ 100 mls/hr IV Q8 [facility] Last Infusion: 12/13/19 06:41 Dose: Infused Documented by: Insulin Glargine (Lantus (Bkc)) 15 units SC QHS [facility] Last Admin: 12/12/19 21:28 Dose: 15 units Documented by: Insulin Human Lispro (Humalog Kwikpen ([facility])) 0 unit SC Q6 [facility]; Protocol Last Admin: 12/13/19 05:41 Dose: 1 u Documented by: Lisinopril (Zestril) 10 mg PO DAILY [facility] Last Admin: 12/13/19 09:40 Dose: 10 mg Documented by: Ondansetron HCl (Zofran) 4 mg IV Q8H PRN PRN PRN Reason: NAUSEA/VOMITING Last Admin: 12/11/19 20:58 Dose: 4 mg Documented by: Sodium Chloride () 10 - 40 ml IV UD PRN PRN Reason: SALINE FLUSH Last Admin: 12/12/19 17:42 Dose: 10 ml Documented by: Trazodone HCl (Desyrel) 200 mg PO QHS MAXI Last Admin: 12/12/19 21:29 Dose: 200 mg Documented by: Zolpidem Tartrate (Ambien (Generic)) 5 mg PO QHS PRN PRN PRN Reason: INSOMNIA Last Admin: 12/12/19 21:33 Dose: 5 mg Documented by: Medical Necessity - Tobacco Use Smoking Status: Never smoker Assessment/Plan All Active Problems Acute colitis (Acute) GI bleed (Acute) 64-year-old female with colitis 1. Patient is tolerating folds and her abdominal pain still improving. Discussed with patient to continue on a full liquid diet and until the pain has resolved which may take 1 to 2 weeks. Patient was agreeable with plan also recommended protein/nutritional drinks to supplement. Patient written for Cipro and Flagyl on DC. Follow-up with Dr. Herrera in about 4 weeks or if the pain gets worse recommend letting us know and changing to a clear diet. Kae Huddleston M.D. Pager: [phone] [facility] [address] [place] [address], Outpatient [place], [address] [place] [address] Office: [phone] Inpatient E&M: 84710 [facility] Hosp L1
[2019-12-13] MEDS: Ciprofloxacin 400 MG/200 ML BAG 200 MG IV (10:23)
[2019-12-13 11:06] VITALS: PULSE 67
--- NOTE | 2019-12-13 15:13 | DS.PCM_ITS ---
Discharge Date and Diagnosis Date of Admission: 12/08/19 Date of Discharge: 12/13/19 - Primary Discharge Diagnosis #1 acute colitis of the transverse colon/left hemicolon and rectum. #2 severe sepsis. #3 lower GI bleed attributed to acute colitis. - Secondary Discharge Diagnosis Chronic Problems Insomnia (Chronic) Depression (Chronic) Type 1 diabetes mellitus (Chronic) Hypertension (Chronic) Hospital Course and Treatment Imaging Results: Clinical Impression(s) from Imaging Studies Abdomen/Pelvis CT 12/09/19 07:35 IMPRESSION: Findings in comparison with the colitis of the transverse colon and left hemicolon down to the rectum. Electronically Signed: Noah Washburn, at 10:49 EDT , Service support , Dr. Astorga, Dr. herrera, general surgery. Operations: None Procedures: None Summary of Care Provided: Patient seen and examined on discharge and appeared to be stable to be discharged home. She denied any more rectal bleeding. Abdominal pain significantly improved, no more nausea or vomiting. She tolerated full liquid diet. Her vital signs are stable, afebrile. The patient is a 64 year old F presented to the emergency room because of bleeding per rectum and abdominal pain and initially, she was admitted as a case of GI bleed for evaluation. Because of the abdominal pain, CT scan abdomen and pelvis with contrast performed and revealed findings consistent with acute colitis of the transverse colon, left hemicolon and rectum which was complicated by severe sepsis. This acute colitis attributed to ischemic colitis. Upon arrival to ER, patient was afebrile, tachypneic, tachycardic, lactic acid was 2.2 and she did have leukocytosis along with evidence of acute inflammation consistent with severe sepsis. She was treated with IV fluids, kept on n.p.o., IV antibiotics, IV pain medications, IV antiemetics and monitoring her CBC and BMP. LFT and lipase were normal. General surgery consulted and recommended to continue conservative treatment. With IV fluids, lactic acid came down to normal. Stool for enteric pathogens came back negative. Her hemoglobin remained stable and there was no indication for blood transfusion. With treatment mentioned above, patient symptoms improved, had no more rectal b leeding and she did tolerate full liquid diet. She remained afebrile, leukocytosis resolved. Patient discharged home in a stable condition, discharged on 5 days more of oral Flagyl and ciprofloxacin to complete total of 10 days of treatment, discharged on OxyIR PRN for pain, instructed to use Tylenol or ibuprofen [id number] for pain and if not working, she can use OxyIR, instructed to stay on light diet, avoid large meals, full liquid diet for a week according to surgery recommendations, plan to follow-up with PCP in 1 week and follow-up with general surgery in 4 weeks for colonoscopy after recovery. - Physical Exam Vitals/I&O's: Vital Signs Temp Pulse Resp BP Pulse Ox 98.1 F 67 16 149/82 H 96 12/13/19 09:34 12/13/19 11:06 12/13/19 09:34 12/13/19 09:34 12/13/19 09:34 Oxygen Delivery Method Room Air Weight: 199 lb 4.766 oz Body Mass Index (BMI) 34.2 Intake and Output for Last 24 Hours 12/11/19 12/12/19 12/13/19 23:59 23:59 23:59 Intake Total 4145.00 / 4145.00 3100.00 / 3100.00 1635.00 / 1635.00 Balance 4145.00 / 4145.00 3100.00 / 3100.00 1635.00 / 1635.00 General: Alert, Oriented x3, Cooperative, No apparent distress HEENT: Atraumatic, PERRLA, EOMI, Normocephalic Oral: Moist Mucosa, No Gingival or Mucosal Lesions/ Ulcerations Neck: Supple, No JVD, Negative Carotid Bruits, Trachea Midline, Thyroid Normal Size and Texture Lungs: Clear to auscultation, Normal air movement, No rhonchi, No wheeze, No rales Cardiovascular: Regular rate, Regular Rhythm, Normal S1, Normal S2, PMI Normal Abdomen: Bowel Sounds Present, Soft, Non Tender, Non-Distended, No Hepato- splenomegaly Extremities: No clubbing, No cyanosis, No edema Skin: No rashes, No breakdown Lymphatic: No Cervical, Supraclavicular, or Inguinal Adenopathy Neurological: Cranial nerves II-XII grossly intact, Neuro grossly intact Psych/Mental Status: Normal Affect, Appropriate Microbiology Past 72 Hours 12/09/19 13:30 Stool Enteric Bacteriology - Final Laboratory Results 12/12/19 17:36: POC Glucose 297 H 12/12/19 21:21: POC Glucose 295 H 12/12/19 23:43: POC Glucose 271 H 12/13/19 05:30: WBC 7.3, RBC 4.17 L, Hgb 12.2, Hct 37.3, MCV 89.4, MCH 29.3, MCHC 32.7, RDW Std Deviation 44.4 H, RDW Coeff of Nisha 13.9, Plt Count 235, MPV 9.1, Immature Gran % (Auto) 0.600, Neut % (Auto) 64.9, Lymph % (Auto) 18.3 L, Yell % (Auto) 9.5, Eos % (Auto) 6.1 H, Baso % (Auto) 0.6, Absolute Neuts (auto) 4.7, Absolute Lymphs (auto) 1.33, Nucleated RBC % 0 12/13/19 05:30: Sodium 140, Potassium 3.6, Chloride 109 H, Carbon Dioxide 27.0, Anion Gap 4 L, BUN 7, Creatinine 0.66, Estim Creat Clear Calc 75.34, Est GFR (MDRD) Af Amer 115, Est GFR (MDRD) Non-Af 95, BUN/Creatinine Ratio 10.5, Glucose 163 H, Calcium 8.3 L 12/13/19 05:40: POC Glucose 153 H Discharge Activity: Return to Normal Activity Weight Bearing Status: Weight bearing as tolerated Call your doctor if you observe: Fever of 101 or Higher, Shortness of breath, Dizziness, Fainting spells, Chest pain, Increased palpitations (irregular heartbeat), Uncontrolled pain Home Medications: Medications to take at Discharge Aspirin/Acetaminophen/Caffeine [Headache Relief Caplet] 1 tab PO DAILY 12/08/19 Duloxetine Hcl [Cymbalta] 60 mg PO DAILY 12/08/19 Insulin Aspart [Novolog Vial] 10 - 15 units SQ TIDCM 12/08/19 Insulin Detemir [Levemir] 15 units SQ QHS 12/08/19 Insulin Detemir [Levemir] 45 units SQ DAILY@1200 12/08/19 Lisinopril [Zestril] 10 mg PO DAILY 12/08/19 Trazodone HCl 200 mg PO QHS 05/11/20 Ciprofloxacin [Cipro] 500 mg PO BID #10 tab 12/13/19 Oxycodone [Oxyir] 5 mg PO Q8H PRN PRN 3 Days #10 tab 12/13/19 metroNIDAZOLE [Flagyl] 500 mg PO Q8H #15 tab 12/13/19 Following Prescrptions Were Given to Patient: Ciprofloxacin [Cipro] 500 mg PO BID #10 tab Transmission Status: Received by [facility] metroNIDAZOLE [Flagyl] 500 mg PO Q8H #15 tab Transmission Status: Received by [facility] Oxycodone [Oxyir] 5 mg PO Q8H PRN PRN 3 Days #10 tab PRN Reason: Pain Score 6-10/10 [facility] Primary Care Physician: Ronnie Pimentel MD [Primary Care Provider] - Please follow up with your Primary Care Physician in: 1 week. Please Follow Up With: Jaron Herrera MD When: 4 weeks. Please Follow Up With: Ronnie Pimentel MD Patient Instructions: Ischemic Colitis Disposition: Home Minutes spent on discharge:: 32 Patient Condition:: Stable Medical Necessity - Tobacco Use Smoking Status: Never smoker Meaningful Use Info Meaningful Use Diagnoses (Choose all that apply): None applicable Inpatient E&M: 85138 Disch Hosp
== END 2019-12-13 12:06 | disposition home or self-care (01) | DRG 871 ==
LOC: ED 17:17 → PCU 19:45
PROVIDERS: Surgery; Admitting Provider Hospitalist; Emergency Provider Emergency Medicine; PCP Family Medicine; Visit Provider Hospitalist
DX: A41.9 Sepsis, unspecified organism (principal); K55.039 Acute (reversible) ischemia of large intestine, extent unspecified; E87.2 Acidosis; R65.20 Severe sepsis without septic shock; E10.9 Type 1 diabetes mellitus without complications; F32.9 Major depressive disorder, single episode, unspecified; I10 Essential (primary) hypertension; N28.9 Disorder of kidney and ureter, unspecified; G47.00 Insomnia, unspecified
CPT/HCPCS: 36415; 74177; 80048; 80053; 81001; 82009; 82274; 82962; 83605; 83690; 84484; 85014; 85018; 85025; 85610; 86850; 86900; 86901; 86920; 86922; 87506; 93005; 96361; 96374; 97802; 99285; J7030; Q9967; A4216; J0744; J2405

== ENCOUNTER 2020-01-16 07:26 | Day surgery (SDC) | payer MEDICARE, SELFPAY ==
--- NOTE | 2020-01-06 01:35 | HP_ITS ---
Intake Vital Signs 01/06/20 Height 5 ft 4 in 01/06/20 Weight: 200 lb 01/06/20 BP 128/82 H 01/06/20 Blood Pressure Location Rt brachial 01/06/20 Position Sitting 01/06/20 Respiration 18 01/06/20 Temp 98.1 F 01/06/20 Temp Source Temporal 01/06/20 BMI 34.2 Intake Visit Reasons: COLONOSCOPY/ COLITIS ER [facility] 12/12 Chief Complaint: GI Bleed Antenna Rigger Required: No Allergies No Known Allergies Allergy (Verified 01/06/20 13:13) Medications Aspirin/Acetaminophen/Caffeine [Headache Relief Caplet] 1 tab PO DAILY 12/08/19 [History Confirmed 12/08/19] Duloxetine Hcl [Cymbalta] 60 mg PO DAILY 12/08/19 [History Confirmed 01/06/20] Insulin Aspart [Novolog Vial] 10 - 15 units SQ TIDCM 12/08/19 [History Confirmed 01/06/20] Insulin Detemir [Levemir] 15 units SQ QHS 12/08/19 [History Confirmed 01/06/20] Insulin Detemir [Levemir] 45 units SQ DAILY@1200 12/08/19 [History Confirmed 01/06/20] Lisinopril [Zestril] 10 mg PO DAILY 12/08/19 [History Confirmed 01/06/20] Trazodone HCl 200 mg PO QHS 12/08/19 [History Confirmed 01/06/20] omeprazole 20 mg tablet,delayed release 20 mg PO DAILY #60 tab 01/06/20 [Rx Confirmed 01/06/20] sucralfate 1 gram tablet 1 g PO QACHS #120 tab 01/06/20 [Rx Confirmed 01/06/20] PFSH Medical History Acute colitis (Acute) GI bleed (Acute) Insomnia (Chronic) Depression (Chronic) Type 1 diabetes mellitus (Chronic) Hypertension (Chronic) Family History Father Cancer lung Social History (Updated 01/07/20 @ 07:[address] Jaron Herrera MD) Smoking Status: Never smoker HPI HPI HPI: MIHAELA HOLBROOK, is a 64 F who presents to the office today for HPI HPI Surgical H&P: Yes HPI: MIHAELA HOLBROOK, is a 64 F who presents to the office today for Follow-up after hospitalization for colitis. The patient reports that she been having a lot of epigastric pain. She has not been having the left lower quadrant pain like she was when she was in the hospital for colitis. She had one episode of blood about a week and a half ago but no blood in her stool since. No nausea or vomiting. Today she only complains of epigastric pain with no left lower quadrant pain. ROS General General: No weight change or fatigue Cardio Cardiovascular: No murmur, pacemaker, heart disease, atrial fibrillation, high blood pressure, heart attack, heart stent, palpitations, shortness of breat with exertion or chest pain Psych Psychiatric: No depression or anxiety Resp Respiratory: No shortness of breath, No sleep apnea, No cough, No COPD, No asthma, No emphysema, No wheezing Gastro Gastrointestinal: Yes abdominal pain, No nausea or vomiting, No diarrhea, No constipation, Yes blood in stool, Yes acid reflux, No hemorrhoids, No ulcers, No gallbladder problem, No black,tarry stools Michael Hematologic: No blood thinners Exam Const General: cooperative Orientation: alert, oriented x3 Resp Effort & Inspection: normal respiratory effort Auscultation: clear to auscultation bilaterally Cardio Rate: regular rate Rhythm: regular rhythm Heart Sounds: no murmurs GI Inspection: non-distended Palpation: soft, nontender Assessment & Plan Problems 1. Epigastric pain R10.13 2. Acute colitis K52.9 3. Gastrointestinal hemorrhage, unspecified gastrointestinal hemorrhage type K92.2 Plan The patient had an episode of bright red blood about a week and a half ago but no other bleeding per rectum. She is having epigastric pain with reflux. I will start her on a PPI and Carafate. I will perform a colonoscopy due to the colitis. At the same time I will perform an EGD to evaluate for ulcer or gastritis. I explained endoscopy in detail to the patient. I explained the risks including but not limited to stroke or heart attack with anesthesia, perforation of the GI tract, bleeding, infection. I explained that any of these could necessitate further emergency surgery. The patient understands and all questions were answered sufficiently. The patient wishes to proceed with procedure. We discussed the current risks associated with COVID-19. While it is understood that there is a community spread of COVID-19, the risk of maria esther COVID-19 while at [facility] ([facility]) is very low; however, the risk cannot be completely mitigated because of the community spread of the disease. We discussed in detail the risk of exposure to and/or potential harm posed by the COVID-19 virus with having a surgery/procedure at this time versus the risk of delaying the surgery/procedure. It is not possible to know either the risk of delaying the surgery or procedure or chance of getting an infection with perfect accuracy, but a joint decision was made to proceed at this time with the scheduled surgery/procedure as indicated on the consent form. Patient was notified that we will need to comply with any screening or testing [facility] wishes to perform or that surgery may be delayed for any positive results. Jaron Herrera MD Pager: [facility] [address] [place] [address], [address] [place] [address] Office: Orders Orders: Colonoscopy 01/06/20 K52.9 EGD 01/06/20 R10.13 Medications New: omeprazole 20 mg PO DAILY 60 tabs 0RF sucralfate (Carafate) 1 g PO QACHS 120 tabs 0RF Coding Level of Care Code Off vis,est,level 3 Diagnoses Epigastric pain R10.13 Acute colitis K52.9 Gastrointestinal hemorrhage, unspecified gastrointestinal hemorrhage type K92.2 ??GI bleed type/associated pathology: unspecified gastrointestinal hemorrhage type 01/07/20 0753 <Electronically signed by Jaron ritchie MD> Date _ Jaron Herrera MD I have re-examined the patient. There are no clinical changes since date of exam.
[2020-01-06 13:20] VITALS: BMI 34.3
--- NOTE | 2020-01-16 | GASB_PTH ---
PATIENT: MIHAELA HOLBROOK LOC: EN U#:[id number] AGE/SX: 64/F ROOM: RE01/16/[address]: Dr. Jaron Herrera MD : 1955 BED: DIS: 01/16/2020 SPEC #: [id number] RECD: 01/16/20 09:34 STATUS: SALVADOR RENeo #: [id number] SI[place]: 01/16/20 00:[address]: Jaron Herrera DEPT: SURGICAL PATHOLOGY RECD BY: Pilo Siegel ENTERED: 01/16/20 09:34 SP TYPE: Gastric Bx OTHR DR: Dr. Ronnie Pimentel MD Tissues: Gastric mucous membrane Procedures: Surgery Specimen Level IV HEADER OPERATION: Colonoscopy, EGD ([facility]) PRE-OP DIAGNOSIS: Epigastric pain, GI hemorrhage, colitis TISSUE SUBMITTED: GE junction biopsy MICROSCOPIC DIAGNOSIS GE junction, biopsy: Fragments of squamous epithelium with changes consistent with gastroesophageal reflux disease and eosinophilic esophagitis. See comment. TERE:seb 01/19/20 COMMENT Increased number of eosinophils (more than 20 per high power field) consistent with eosinophilic esophagitis are noted. Correlation with clinical, endoscopic findings and appropriate follow up are necessary. MICROSCOPIC DESCRIPTION Slides are reviewed. GROSS DESCRIPTION Received in fixative is one container labeled with the patient's name and designated GE junction biopsy. The specimen consists of multiple irregular fragments of light packer soft tissue that in aggregate measure 1 x 0.2 x 0.1 cm. The specimen is totally submitted in one cassette. / AM:seb 01/16/20 TC:3 CPT: 69535
[2020-01-16 07:50] VITALS: BP 135/88; PULSE 71; RESP 16; TEMP 36.8; O2SAT 99; BMI 32.7
[2020-01-16] MEDS: Lactated Ringers 1,000 ML 100 ML IV (08:06)
--- NOTE | 2020-01-16 08:56 | OP.CCLET_ITS ---
01/16/2020 Ronnie Pimentel Re : Upper GI endoscopy procedure for Jil Zamora Dear Margarito This procedure was performed on Thursday, January 16, 2020. My impressions and recommendations are as follows: Impressions : - Non-bleeding esophageal ulcer. Biopsied. - Normal stomach. - Normal examined duodenum. Recommendations : - Resume previous diet. - Continue present medications. - Discharge patient to home. My findings are described in the full procedure note, which is enclosed. If I can be of further assistance, please feel free to contact me at Doctor phone number(s): , Work: . Sincerely, Jaron Herrera MD 01/16/2020 8:56:13 AM This report has been signed electronically.
--- NOTE | 2020-01-16 08:56 | OP.EGD_ITS ---
Patient Name: Jil Zamora Procedure Date: 01/16/2020 7:12 AM Date of : 1955 Age: 64 Procedure: Upper GI endoscopy Indications: Epigastric abdominal pain, Recent gastrointestinal bleeding Providers: Jaron Herrera MD Referring MD: Ronnie Pimentel Medicines: Monitored Anesthesia Care Patient Profile: This is a 64 year old female. Refer to note in patient chart for documentation of history and physical. Complications: No immediate complications. Estimated blood loss: Minimal. Procedure: Pre-Anesthesia Assessment: - Prior to the procedure, a History and Physical was performed, and patient medications and allergies were reviewed. The patient's tolerance of previous anesthesia was also reviewed. The risks and benefits of the procedure and the sedation options and risks were discussed with the patient. All questions were answered, and informed consent was obtained. Prior Anticoagulants: The patient has taken no previous anticoagulant or antiplatelet agents. After reviewing the risks and benefits, the patient was deemed in satisfactory condition to undergo the procedure. After obtaining informed consent, the endoscope was passed under direct vision. Throughout the procedure, the patient's blood pressure, pulse, and oxygen saturations were monitored continuously. The Endoscope was introduced through the mouth, and advanced to the fourth part of duodenum. The upper GI endoscopy was accomplished without difficulty. The patient tolerated the procedure well. Scope In: 8:31:27 AM Scope Out: 8:33:48 AM Total Procedure Duration Time 0 hours 2 minutes 21 seconds Findings: One superficial esophageal ulcer with no bleeding and no stigmata of recent bleeding was found. Biopsies were taken with a cold forceps for histology. The stomach was normal. The examined duodenum was normal. Impression: - Non-bleeding esophageal ulcer. Biopsied. - Normal stomach. - Normal examined duodenum. Recommendation: - Resume previous diet. - Continue present medications. - Discharge patient to home. Procedure Code(s): --- Professional --- 33125, Esophagogastroduodenoscopy, flexible, transoral; with biopsy, single or multiple Diagnosis Code(s): --- Professional --- K22.10, Ulcer of esophagus without bleeding R10.13, Epigastric pain K92.2, Gastrointestinal hemorrhage, unspecified CPT copyright 2017 [employer]. All rights reserved. The codes documented in this report are preliminary and upon zoning assistant review may be revised to meet current compliance requirements. Jaron Herrera MD 01/16/2020 8:56:13 AM This report has been signed electronically. Number of Addenda: 0 Note Initiated On: 01/16/2020 7:12 AM
[2020-01-16 08:57] VITALS: BP 135/88; BP 93/57; PULSE 69; RESP 16; TEMP 36.4; O2SAT 96
--- NOTE | 2020-01-16 08:57 | OP.COLON_ITS ---
Patient Name: Jil Zamora Procedure Date: 01/16/2020 8:34 AM Date of : 1955 Age: 64 Procedure: Colonoscopy Indications: Colitis Providers: Jaron Herrera MD Referring MD: Ronnie Pimentel Medicines: Monitored Anesthesia Care Patient Profile: This is a 64 year old female. Refer to note in patient chart for documentation of history and physical. Last Colonoscopy: none. The patient's first colonoscopy is today. Complications: No immediate complications. Procedure: Pre-Anesthesia Assessment: - Prior to the procedure, a History and Physical was performed, and patient medications and allergies were reviewed. The patient's tolerance of previous anesthesia was also reviewed. The risks and benefits of the procedure and the sedation options and risks were discussed with the patient. All questions were answered, and informed consent was obtained. Prior Anticoagulants: The patient has taken no previous anticoagulant or antiplatelet agents. After reviewing the risks and benefits, the patient was deemed in satisfactory condition to undergo the procedure. After I obtained informed consent, the scope was passed under direct vision. Throughout the procedure, the patient's blood pressure, pulse, and oxygen saturations were monitored continuously. The Colonoscope was introduced through the anus and advanced to the cecum, identified by appendiceal orifice and ileocecal valve. The colonoscopy was performed without difficulty. The patient tolerated the procedure well. The quality of the bowel preparation was good. Scope In: 8:35:45 AM Scope Withdrawal Time 0 hours 6 minutes 18 seconds Scope Out: 8:50:50 AM Total Procedure Duration Time 0 hours 15 minutes 5 seconds Findings: The entire examined colon appeared normal on direct and retroflexion views. Impression: - The entire examined colon is normal on direct and retroflexion views. - No specimens collected. Recommendation: - Discharge patient to home. - Resume previous diet. - Continue present medications. - Repeat colonoscopy in 10 years for screening purposes. Procedure Code(s): --- Professional --- 49400, Colonoscopy, flexible; diagnostic, including collection of specimen(s) by brushing or washing, when performed (separate procedure) Diagnosis Code(s): --- Professional --- K52.9, Noninfective gastroenteritis and colitis, unspecified CPT copyright 2017 [employer]. All rights reserved. The codes documented in this report are preliminary and upon med asst review may be revised to meet current compliance requirements. Jaron Herrera MD 01/16/2020 8:57:42 AM This report has been signed electronically. Number of Addenda: 0 Note Initiated On: 01/16/2020 8:34 AM
--- NOTE | 2020-01-16 08:58 | OP.CCLET_ITS ---
01/16/2020 Ronnie Pimentel Re : Colonoscopy procedure for Jil Zamora Dear Margarito This procedure was performed on Thursday, January 16, 2020. My impressions and recommendations are as follows: Impressions : - The entire examined colon is normal on direct and retroflexion views. - No specimens collected. Recommendations : - Discharge patient to home. - Resume previous diet. - Continue present medications. - Repeat colonoscopy in 10 years for screening purposes. My findings are described in the full procedure note, which is enclosed. If I can be of further assistance, please feel free to contact me at Doctor phone number(s): , Work: . Sincerely, Jaron Herrera MD 01/16/2020 8:57:42 AM This report has been signed electronically.
[2020-01-16 09:01] VITALS: BP 135/88; BP 89/71; PULSE 71; RESP 16; O2SAT 100
[2020-01-16 09:05] VITALS: BP 132/71; BP 135/88; PULSE 64; RESP 16; O2SAT 100
[2020-01-16 09:11] VITALS: BP 119/72; BP 135/88; PULSE 63; RESP 16; TEMP 36.5; O2SAT 100
== END 2020-01-16 10:02 | disposition home or self-care (01) ==
LOC: EN 07:27 → AC 07:29
PROVIDERS: Anesthesiology; PCP Family Medicine; Referring Provider Family Medicine; Visit Provider Surgery
PROC: 0DJD8ZZ Inspection of Lower Intestinal Tract, Via Natural or Artificial Opening Endoscopic (ICD-10-PCS; CPT 45378; principal; 2020-01-16 08:05)
DX: K22.10 Ulcer of esophagus without bleeding (principal); R10.13 Epigastric pain; K92.2 Gastrointestinal hemorrhage, unspecified; K52.9 Noninfective gastroenteritis and colitis, unspecified; Z11.59 Encounter for screening for other viral diseases; I10 Essential (primary) hypertension; E10.9 Type 1 diabetes mellitus without complications; F32.9 Major depressive disorder, single episode, unspecified; Z79.4 Long term (current) use of insulin; Z79.82 Long term (current) use of aspirin; Z79.899 Other long term (current) drug therapy; Z86.73 Personal history of transient ischemic attack (TIA), and cerebral infarction without residual deficits
CPT/HCPCS: 43239; 45378; 87635; 88305; G2023; J7120; J2405; U0003

== ENCOUNTER 2022-06-24 08:45 | Emergency (ER) | payer MEDICARE, MEDICAID, SELFPAY ==
[2022-06-24 08:46] VITALS: BP 113/77; PULSE 80; RESP 18; TEMP 29.8; O2SAT 96; BMI 33.1
[2022-06-24 09:26] LABS: Bedside Glucose 123 mg/dL (74-106)
--- NOTE | 2022-06-24 09:26 | EDS_ITS ---
HPI History of Present Illness Chief Complaint: Hypoglycemia Informant: patient Narrative Narrative: 67-year-old diabetic female presenting to the emergency department chief complaint of unresponsive. Family found her unresponsive in the bed. They note that she was drooling and was sweaty. Her clothes were wet. EMS noted hypoglycemia and administered D10 which improved her symptoms. She states that she still feels somewhat confused but is significantly improved. She went to bed around 2130 hrs. last night. This is happened before but not commonly. She denies any loss of bowel or bladder control. No recent infections. She notes that she checks her blood sugar 4-5 times per day. [facility] Medical History (Updated 06/24/22 @ 12:[address] Mac Lim DO) Acute colitis Depression GI bleed Hypertension Insomnia Type 1 diabetes mellitus Home Medications qvriyzh-vkmccipzhjtsg-ngpjrvmy 250 mg-250 mg-65 mg tablet 1 tab PO DAILY headache 12/08/19 [History Last Taken 12/07/19] duloxetine 60 mg capsule,delayed release 60 mg PO DAILY 12/08/19 [History Last Taken 12/07/19] insulin aspart U-100 100 unit/mL subcutaneous solution 10 - 15 units SQ TIDCM dm 12/08/19 [History Last Taken 12/07/19] insulin detemir U-100 100 unit/mL subcutaneous solution 15 units SQ QHS dm 12/08/19 [History Last Taken 12/07/19] insulin detemir U-100 100 unit/mL subcutaneous solution 45 units SQ DAILY@1200 dm 12/08/19 [History Last Taken 12/07/19] lisinopril 10 mg tablet 10 mg PO DAILY bp 12/08/19 [History Last Taken 12/07/19] trazodone 100 mg tablet 200 mg PO QHS sleep 12/08/19 [History Last Taken 12/07/19] omeprazole 20 mg tablet,delayed release 20 mg PO DAILY #60 tabs 01/06/20 [Rx Last Taken Unknown] sucralfate 1 gram tablet (Carafate) 1 g PO QACHS #120 tabs 01/06/20 [Rx Last Taken Unknown] Allergy/AdvReac Type Severity Reaction Status Date / Time No Known Allergies Allergy Verified 06/24/22 08:55 Family History Father Cancer lung Social History Smoking Status: Never smoker ROS ROS ED Constitutional Constitutional ED: Denies chills or weight loss Eyes Eyes: Denies change in vision or diplopia ENT ENT ED: Denies ear pain, rhinorrhea or sore throat Cardiovascular Cardiovascular: Denies chest pain, orthopnea, palpitations or racing heartbeat Respiratory/Chest Respiratory/Chest: Denies cough, dyspnea or orthopnea Gastrointestinal Gastrointestinal: Denies abdominal pain, diarrhea, nausea or vomiting Genitourinary Genitourinary ED: Denies dysuria, hematuria or urinary frequency Musculoskeletal Musculoskeletal: Denies arthralgias or myalgias Integumentary Denies abscess or rash Neurologic Neurologic: Denies headache(s) or weakness Psychiatric Psychiatric: Denies anxiety, depression, suicidal ideation or suicidal thoughts Endocrine Endocrinology: Denies polydipsia, polyphagia or polyuria Allergic/Immunologic Allergic/Immunologic ED: Denies mouth swelling, tongue swelling or urticaria EXAM Physical Exam Const Vital Signs: 06/24/22 08:46 06/24/22 08:59 06/24/22 11:06 Temperature 85.7 F L Temperature Source Temporal Pulse Rate 80 82 Respiratory Rate 18 20 H Respiratory Effort Normal Non-Labored Respiratory Pattern Normal Blood Pressure 113/77 125/78 H Blood Pressure Mean 89 93 Pulse Ox 96 99 Oxygen Delivery Method Room Air Room Air 06/24/22 11:08 Temperature Temperature Source Pulse Rate 72 Respiratory Rate 17 Respiratory Effort Respiratory Pattern Blood Pressure 136/88 H Blood Pressure Mean 104 Pulse Ox 97 Oxygen Delivery Method Room Air Positive well nourished and well developed General Appearance ED: well developed HEENT Reports normocephalic, head/scalp atraumatic and moist mucous membranes Eyes PERRL and EOMs intact bilaterally Neck no lymphadenopathy, supple and no JVD Resp normal respiratory effort and clear to auscultation bilaterally Cardio regular rate, regular rhythm and no murmurs GI normal to inspection, nondistended, normoactive bowel sounds and non-tender Palpation: soft Back/Spine no CVA tenderness and normal ROM Extremity normal to inspection General Extremety ED: Negative for edema General Extremity: Negative for edema Neuro oriented x3 and CN's II-XII intact bilaterally Sensorium / Orientation: alert Motor Exam: strength 5/5 throughout Psych mental status grossly normal Mood & Affect: Negative for depressed or tearful Skin no rashes or lesions noted and no wounds MDM MDM MDM Narrative Medical decision making narrative: Patient had received D10 by EMS. We monitored her blood sugar over the past next several hours. She was able to eat V[employer]as[employer] that her family brought for her. She is doing significantly better. At this point I think the patient can be discharged home return if worsening or concerns Lab Data Attestation: I reviewed the patient's lab results. Labs: Laboratory Results - last 24 hr 06/24/22 06/24/22 06/24/22 08:51 10:04 11:04 POC Glucose 123 H 73 L 182 H Discharge Plan Triage Chief Complaint: Hypoglycemia ED Provider: Mac Lim Dx/Rx/DC Orders Clinical Impression: Type 1 diabetes mellitus, Diabetic hypoglycemia, Altered mental status Instructions: ED Diabetic Insulin Reaction Prescriptions: No Action sucralfate [Carafate] 1 gram tablet 1 g PO QACHS Qty: 120 0RF omeprazole 20 mg tablet,delayed release (DR/EC) 20 mg PO DAILY Qty: 60 0RF trazodone 100 MG tablet 200 mg PO QHS lisinopril 10 MG tablet 10 mg PO DAILY duloxetine 60 MG capsule 60 mg PO DAILY insulin detemir U-100 100 unit/mL solution 45 units SQ DAILY@1200 Label Comments: inject 40 units subcutaneously daily with LUNCH and 15 units at bedtime insulin detemir U-100 100 unit/mL solution 15 units SQ QHS Label Comments: inject 40 units subcutaneously daily with LUNCH and 15 units at bedtime insulin aspart U-100 100 unit/mL solution 10 - 15 units SQ TIDCM Label Comments: inject 15 units subcutaneously three times a day before meals thjhlkc-fnlfqdcapwnyf-ziwvfcky 1 EACH tablet 1 tab PO DAILY Primary Care Provider: Ronnie Pimentel Referrals: Ronnie Pimentel MD [Primary Care Provider] - As Needed Disposition Disposition: Home, Self Care
[2022-06-24 10:26] LABS: Bedside Glucose 73 mg/dL (74-106)
[2022-06-24 11:06] VITALS: BP 125/78; PULSE 82; RESP 20; O2SAT 99
[2022-06-24 11:08] VITALS: BP 136/88; PULSE 72; RESP 17; O2SAT 97
[2022-06-24 11:25] LABS: Bedside Glucose 182 mg/dL (74-106)
[2022-06-24 12:18] VITALS: PULSE 74; RESP 16; O2SAT 98
[2022-06-24 12:30] LABS: Bedside Glucose 260 mg/dL (74-106)
== END 2022-06-24 12:20 | disposition home or self-care (01) ==
PROVIDERS: Emergency Provider Emergency Medicine; PCP Family Medicine; Visit Provider Emergency Medicine
DX: E10.649 Type 1 diabetes mellitus with hypoglycemia without coma (principal); Z79.4 Long term (current) use of insulin; R41.82 Altered mental status, unspecified; Z79.899 Other long term (current) drug therapy; Z79.82 Long term (current) use of aspirin
CPT/HCPCS: 82962; 99285; A4216